=== PATIENT | female | born 1960 | race Caucasian/White ===

== ENCOUNTER → 2017-10-24 | Day surgery (SDC) | payer MEDICARE ==
--- NOTE | 2017-10-19 18:32 | Diagnostic Imaging Report ---
PROCEDURE:C-SPINE AP AND LAT WITH FLEX AND EXT COMPARISON:Patients [facility], DX, SPINE CERVICAL AP\T\LAT FLEX\T\EXT, 02/26/2017, 9:19. INDICATIONS:POST FUSION FINDINGS: The cervical spine is visualized in the lateral view from the skull base to superior endplate of T1. Status post anterior fixation of C4-C5 with intact hardware. Minimal grade 1 anterolisthesis of C5 on C4, which is predominantly seen in the flexion view. No lytic or blastic lesions. Degenerative disc changes with prominent osteophytosis at C3-C4-C5-C6 and C6-C7. Intervertebral disc space narrowing. C6-C7. Vertebral body heights are preserved. Prevertebral soft tissues are unremarkable. CONCLUSION: Status post anterior fusion C4-C5 with intact hardware. No significant interval bony fusion. Mk Sloan M.D. Dictated by: Mk Sloan M.D. on 10/19/2017 at 18:36 Electronically approved by: Mk Sloan M.D. on 10/19/2017 at 18:36
[~2017-10-24] MED LIST: ACETAMINOPHEN 1000 MG/100 ML IV ONE; ACETAMINOPHEN325 M1 PO; ALBUTEROL SULFATE HFA 8GM INHALATION AEROSOL INH ONE; ANASTROZOLE1 MG PO; BUPROPION XL150 MG PO; CALCIUM 600 +1 EAC4 PO; CENTRUM SILVER1 EAC3; CHANTIX1 MG PO; CLINDAMYCIN PHOS 900MG/ D5W 50 50 ML IV ONE; CLONAZEPAM; CLONAZEPAM1 M1 PO; CLONAZEPAM1 MG PO; CRESTOR10 MG PO; CRESTOR40 MG PO; CYMBALTA; CYMBALTA60 MG PO; DEXAMETHASONE SOD PHOS INJ 4 MG/ML VIAL ONE; DOLACET 5/5001 EACH; FENTANYL CITRATE/PF 100MCG/2 ML INJ ONE; GABAPENTIN; GABAPENTIN600 MG PO; GLYCOPYRROLATE INJ 1MG/ 5 ML SYR ONE; HYDROCHLOROTHIA25 MG PO; HYDROCHLOROTHIAZIDE; HYDROCODON-ACE1 EA11 PO; HYDROMORPHONE HC4 MG PO; HYDROXYCHLOROQ200 MG PO; HYDROXYZINE PAM50 MG PO; KETOROLAC TROMETHAMINE 30 MG/ML VIAL ONE; LIDOCAINE 2%/ EPINEPHRINE 20ML MDV ONE; LIDOCAINE HCL 2% LOCAL INJ 5 ML SDV VIAL INJ ONE; LORTAB 10-5001 EACH PO; MELOXICAM; MELOXICAM15 MG PO; MIDAZOLAM HCL 2 MG/2 ML VIAL ONE; MIRTAZAPINE; MIRTAZAPINE15 MG PO; NEOSTIGMINE 5 MG/5ML SYR ONE; NEURONTIN600 MG PO; NORCO 7.5-3251 EACH PO; OLANZAPINE5 MG PO; ONDANSETRON HCL INJ 2 MG/ML VIAL ONE; PHENYLEPHRINE HCL 1% 10 MG/ML VIAL ONE; PRAZOSIN HCL1 MG PO; PRAZOSIN HCL5 MG PO; PROPOFOL IV EMULSION 10 MG/ML 20 ML VIAL ONE; PROZAC PO; PROZAC40 MG PO; ROPIVACAINE 0.5% 5 MG/ML 30 ML SDV ONE; SEVOFLURANE INHAL SOLN 250 ML PEN BTL ONE; SOMA350 MG PO; TAMOXIFEN; TAMOXIFEN CITRA20 MG PO; TIZANIDINE; TIZANIDINE HCL4 M1 PO; TIZANIDINE HCL4 MG PO; TRAMADOL-ACETAMI1 EA PO; TRAZODONE; TRAZODONE HCL100 MG PO; TRAZODONE HCL150 MG PO; VITAMIN C500 MG PO; VITAMIN D 3 PO; VITAMIN E400 UNI2 PO; WELLBUTRIN XL300 MG PO; XYZAL5 MG PO; Z CHANTIX PO; Z DEPAKOTE; Z.0.CRESTOR5 MG PO; [UNRECOGNIZED DRUG - OTHER]
--- NOTE | 2017-10-26 15:36 | Operative Report ---
PREOPERATIVE DIAGNOSES 1. Right shoulder rotator cuff tear. 2. Right shoulder acromioclavicular joint arthrosis. POSTOPERATIVE DIAGNOSES 1. Right shoulder rotator cuff tear. 2. Right shoulder acromioclavicular joint arthrosis. 3. Right shoulder synovitis. OPERATIONS/PROCEDURES PERFORMED 1. The patient underwent a right shoulder examination under anesthesia. 2. Right shoulder arthroscopy. 3. Right shoulder arthroscopic debridement synovitis. 4. Right shoulder arthroscopic rotator cuff reconstruction. 5. Right shoulder arthroscopic subacromial decompression and acromioplasty. 6. Right shoulder arthroscopic distal clavicle resection. SURVEILLANCE OBSERVER: None. ANESTHESIA: General endotracheal intubation anesthesia. IV FLUIDS: As per the anesthesia record. BRIEF DESCRIPTION OF THE PATIENT'S OPERATIVE PROCEDURE: Ms. Rollins was taken to the operating room, placed in supine position on the operating table. Following induction of general anesthesia as well as endotracheal intubation, the patient's right upper extremity was examined under anesthesia. She was found to have full passive range motion of the shoulder joint. There was no evidence of instability. The patient's upper extremity was prepped and draped in standard surgical fashion. The case was begun by creating standard posterolateral anterior portals. These were created without difficulty. Scope was placed within the shoulder joint atraumatically. Examination of the glenohumeral articulation demonstrated no significant evidence of arthrosis. There were no loose bodies within the shoulder joint. The biceps tendon was found to be contained within the shoulder joint. The extraarticular portion of the biceps tendon also did not demonstrate tearing or injury. There was some mild fraying of the labrum. Examination of the rotator cuff tissue demonstrated a full-thickness tear of the anterior leading edge of the rotator cuff tendon. A shaver was placed in the shoulder joint and the patient had diffuse synovitis, tearing and injury. There was diffuse synovitis in the shoulder joint. Examination of the rotator cuff tissue demonstrated a full-thickness tear of the anterior leading edge of the rotator cuff tendon. A shaver was placed in the shoulder joint and the synovitis was debrided. The rotator cuff injury was also debrided at this time. The insertion site was debrided to a bleeding bony bed. An elevator was used to elevate the associated partially torn region of the rotator cuff tissue also and the shaver was used debride the insertion site further. Shoulder was then deflated of its sterile normal saline. Scope was placed in subacromial space and significant bursal inflammation was encountered. A lateral portal was created through an outside-in technique. A bursectomy was performed. The rotator cuff tear was easily identified. A shaver was used to further debride the insertion site. A single triple-loaded suture anchor was then inserted into the greater tuberosity and the suture arms from the anchor was then woven through the rotator cuff tissue. The rotator cuff tissue was then advanced into its normal insertion site and tied firmly. This resulted in complete reapproximation of the rotator cuff tissue of the greater tuberosity. The patient had a significantly downward sloping acromion. The coracoacromial ligament was resected and acromioplasty was performed at this time. The anterior portal was then transferred to the subacromial space at the level of the AC joint. The shaver was transferred to the anterior portal and a 1 cm section of the distal clavicle was resected at this time. The distal clavicle resection was confirmed by transferring the scope to the anterior portal and evaluating the AC joint interval under direct visualization. The shoulder was then deflated of its inflated with sterile normal saline. All the portal sites were closed in a single layer fashion. Sterile dressings were applied and the patient was provided a shoulder immobilizer, awakened and taken to post anesthesia care unit in stable condition. Job#: [id number] JANETT
== END | disposition home or self-care (01) ==
LOC: OR 05:57
PROVIDERS: ATTEND Specialist
DX: S46.091A Other injury of muscle(s) and tendon(s) of the rotator cuff of right shoulder, initial encounter (principal); M19.011 Primary osteoarthritis, right shoulder; M65.811 Other synovitis and tenosynovitis, right shoulder; K58.9 Irritable bowel syndrome, unspecified; K21.9 Gastro-esophageal reflux disease without esophagitis; K44.9 Diaphragmatic hernia without obstruction or gangrene; T78.40XA Allergy, unspecified, initial encounter; R05 Cough; E78.00 Pure hypercholesterolemia, unspecified; R53.1 Weakness; M54.9 Dorsalgia, unspecified; F41.9 Anxiety disorder, unspecified; F32.9 Major depressive disorder, single episode, unspecified; F17.210 Nicotine dependence, cigarettes, uncomplicated; X58.XXXA Exposure to other specified factors, initial encounter; Z88.6 Allergy status to analgesic agent; Z88.0 Allergy status to penicillin; Z88.8 Allergy status to other drugs, medicaments and biological substances; Z01.810 Encounter for preprocedural cardiovascular examination; Z85.3 Personal history of malignant neoplasm of breast
CPT/HCPCS: 29824; 29826; 29827; 72050; 93005; J1100; J1885; J2001 ×2; J2250; J2370; J2405; J2795; J3490

== ENCOUNTER 2019-02-18 13:46 | Emergency (ER) | payer MEDICARE ==
[~2019-02-18] VITALS: Ht 170.2 cm; Wt 85.3 kg
[~2019-02-18 13:46] MED LIST changes: -ACETAMINOPHEN 1000 MG/100 ML IV ONE; -ALBUTEROL SULFATE HFA 8GM INHALATION AEROSOL INH ONE; -CLINDAMYCIN PHOS 900MG/ D5W 50 50 ML IV ONE; -DEXAMETHASONE SOD PHOS INJ 4 MG/ML VIAL ONE; -FENTANYL CITRATE/PF 100MCG/2 ML INJ ONE; -GLYCOPYRROLATE INJ 1MG/ 5 ML SYR ONE; -KETOROLAC TROMETHAMINE 30 MG/ML VIAL ONE; -LIDOCAINE 2%/ EPINEPHRINE 20ML MDV ONE; -LIDOCAINE HCL 2% LOCAL INJ 5 ML SDV VIAL INJ ONE; -MIDAZOLAM HCL 2 MG/2 ML VIAL ONE; -NEOSTIGMINE 5 MG/5ML SYR ONE; -ONDANSETRON HCL INJ 2 MG/ML VIAL ONE; -PHENYLEPHRINE HCL 1% 10 MG/ML VIAL ONE; -PROPOFOL IV EMULSION 10 MG/ML 20 ML VIAL ONE; -ROPIVACAINE 0.5% 5 MG/ML 30 ML SDV ONE; -SEVOFLURANE INHAL SOLN 250 ML PEN BTL ONE
--- NOTE | 2019-02-18 14:20 | NUR ---
DRAMATIC IN TRIAGE.
[2019-02-18] MEDS ORDERED: ONDANSETRON HCL 4 MG ORAL DISINTEGRATING TAB PO ONE (14:30)
[2019-02-18] MEDS ORDERED: HYDROCODONE/APAP 10MG-325MG TAB PO ONE (14:30)
[2019-02-18] MEDS ORDERED: HYDROCODONE/APAP 10MG-325MG TAB PO NR (14:45)
[2019-02-18] MEDS ORDERED: ONDANSETRON HCL 4 MG ORAL DISINTEGRATING TAB PO NR (14:45)
--- NOTE | 2019-02-18 15:16 | Diagnostic Imaging Report ---
EXAMINATION: WRIST COMPLETE LEFT, FOREARM LEFT 2 VIEW INDICATION: Wrist pain, trauma COMPARISON: None FINDINGS: There is a mildly displaced acute fracture of the distal radius with dorsal angulation of the distal fracture fragment. No other acute fractures identified. Extensive overlying soft tissue swelling. IMPRESSION: Mildly displaced acute distal radius fracture with dorsal angulation of distal fracture fragment. Prominent associated soft tissue swelling. Signed by: Savnanah Haq MD on 02/18/2019 3:13 PM
== END 2019-02-18 16:42 | disposition home or self-care (01) ==
LOC: ER 13:46
DX: S52.322A Displaced transverse fracture of shaft of left radius, initial encounter for closed fracture (principal); W01.0XXA Fall on same level from slipping, tripping and stumbling without subsequent striking against object, initial encounter; Y93.01 Activity, walking, marching and hiking; Y92.008 Other place in unspecified non-institutional (private) residence as the place of occurrence of the external cause; I10 Essential (primary) hypertension; E11.9 Type 2 diabetes mellitus without complications; E03.9 Hypothyroidism, unspecified; F41.9 Anxiety disorder, unspecified; I25.2 Old myocardial infarction
CPT/HCPCS: 29125; 73090; 73110; 99284; Q0162

== ENCOUNTER → 2019-03-10 | Day surgery (SDC) | payer MEDICARE ==
[~2019-03-10] MED LIST changes: +ACETAMINOPHEN 1000 MG/100 ML 100 ML IV ONE; +BACITRACIN 50,000 UNIT VIAL ONE; +BUPIVACAINE HCL 0.5% INJ 30 ML VIAL INJ ONE; +CELEBREX100 MG PO; +CLINDAMYCIN PHOS 900MG/ 50ML 50 ML IV ONE; +DEXAMETHASONE SOD PHOS INJ 4 MG/ML VIAL ONE; +EPHEDRINE SULFATE INJ 50 MG/10 ML SYR ONE; +FENTANYL CITRATE/PF 100MCG/2 ML INJ ONE; +KETOROLAC TROMETHAMINE 30 MG/ML VIAL ONE; +LIDOCAINE HCL 2% LOCAL INJ 5 ML SDV VIAL INJ ONE; +MIDAZOLAM HCL 2 MG/2 ML VIAL ONE; +NEXIUM20 MG; +ONDANSETRON HCL INJ 2MG/ML 2ML 2 MG/ML VIAL ONE; +PRAZOSIN HCL1 GM; +PROPOFOL IV EMULSION 10 MG/ML 20 ML VIAL ONE; +SEVOFLURANE INHAL SOLN 250 ML PEN BTL ONE; +TIZANIDINE HCL4 M1
[2019-03-10] MEDS: MORPHINE SULFATE INJ 4 MG/ML INJ 1ML ONE (14:11)
[2019-03-10 14:50] VITALS: BP 144/74
--- NOTE | 2019-03-14 20:10 | Operative Report ---
DATE OF PROCEDURE: 03/10/2019 SURGEON: Kingston Bills MD PREOPERATIVE DIAGNOSIS: Displaced left distal radius fracture. POSTOPERATIVE DIAGNOSIS: Displaced left distal radius fracture. OPERATION/PROCEDURE PERFORMED: 1. The patient underwent an attempted closed reduction of the left wrist fracture followed by open reduction and percutaneous pinning of the left wrist fracture. 2. Allograft bone grafting of the left wrist fracture. COMMERCIAL ROOFER: There was no electrician assistant. ANESTHESIA: General endotracheal intubation anesthesia. IV FLUIDS: Per the anesthesia record. DESCRIPTION OF PROCEDURE: Ms. Rollins was taken to the operating room and placed in supine position on the operating table. Following induction of general anesthesia as well as the endotracheal intubation, the patient's left upper extremity was examined under anesthesia. She was found to have a swollen wrist with a deformity at the level of the wrist. Fluoroscopic evaluation of the wrist joint demonstrated a dorsally malaligned distal radius fracture. The patient's upper extremity was prepped and draped in standard surgical fashion. The case was begun by attempting to perform a closed reduction of the patient's wrist. This failed to provide acceptable realignment of the patient's wrist injury. An incision was then created in the dorsum of the wrist. This incision was carried through the skin only. Blunt dissection was used to deepen the incision and the 4th dorsal wrist compartment was identified and opened. The extensor tendons for dorsal wrist compartment were retracted and dissection was carried through the floor of the 4th dorsal wrist compartment to the dorsum of the wrist. The fracture site was easily identified. A [place] was placed in the fracture site and the fracture was then manipulated using the [place] providing length and restoring the alignment of the distal radius. Two pins were then inserted from distal to proximal transfixing the fracture in its reduced position. The position of those pins as well as reduction of fracture site was then assessed using fluoroscopy and found to be appropriate. The wound was then copiously irrigated. Allograft bone graft was then used to graft the patient's fracture site. The extensor compartment was then loosely closed. The wound was then closed in a multilayer fashion. Sterile dressings were applied as well as a well-padded sugar-tong splint. The patient was then awakened and taken to the postanesthesia care unit in stable condition. MD CHRIS Mccall/RAYSA /[id number]
== END | disposition home or self-care (01) ==
LOC: OR 10:31
PROVIDERS: ATTEND Specialist
DX: S52.532A Colles' fracture of left radius, initial encounter for closed fracture (principal); M54.9 Dorsalgia, unspecified; I45.10 Unspecified right bundle-branch block; R00.1 Bradycardia, unspecified; R53.1 Weakness; K21.9 Gastro-esophageal reflux disease without esophagitis; M46.89 Other specified inflammatory spondylopathies, multiple sites in spine; F32.9 Major depressive disorder, single episode, unspecified; F17.210 Nicotine dependence, cigarettes, uncomplicated; W18.39XA Other fall on same level, initial encounter; Y93.89 Activity, other specified; Y92.096 Garden or yard of other non-institutional residence as the place of occurrence of the external cause; Y99.8 Other external cause status; Z88.6 Allergy status to analgesic agent; Z88.0 Allergy status to penicillin; Z88.8 Allergy status to other drugs, medicaments and biological substances; Z01.810 Encounter for preprocedural cardiovascular examination
CPT/HCPCS: 25607; 25999; 93005; C1713 ×3; J0131; J1100; J1885; J2001; J2250; J2270; J2405; J2704; J3010; 76000

== ENCOUNTER 2020-05-25 09:07 | Inpatient (IN) | payer MEDICARE ==
[~2020-05-25] VITALS: Ht 172.7 cm; Wt 85.3 kg
[~2020-05-25 09:07] MED LIST changes: -ACETAMINOPHEN 1000 MG/100 ML 100 ML IV ONE; -BACITRACIN 50,000 UNIT VIAL ONE; -BUPIVACAINE HCL 0.5% INJ 30 ML VIAL INJ ONE; -CLINDAMYCIN PHOS 900MG/ 50ML 50 ML IV ONE; -DEXAMETHASONE SOD PHOS INJ 4 MG/ML VIAL ONE; -EPHEDRINE SULFATE INJ 50 MG/10 ML SYR ONE; -FENTANYL CITRATE/PF 100MCG/2 ML INJ ONE; -KETOROLAC TROMETHAMINE 30 MG/ML VIAL ONE; -LIDOCAINE HCL 2% LOCAL INJ 5 ML SDV VIAL INJ ONE; -MIDAZOLAM HCL 2 MG/2 ML VIAL ONE; -ONDANSETRON HCL INJ 2MG/ML 2ML 2 MG/ML VIAL ONE; -PROPOFOL IV EMULSION 10 MG/ML 20 ML VIAL ONE; -SEVOFLURANE INHAL SOLN 250 ML PEN BTL ONE
[2020-05-25] MEDS ORDERED: SODIUM CHLORIDE 0.9% 1000ML 1,000 ML IV STA (09:44)
[2020-05-25] MEDS ORDERED: MORPHINE SULFATE INJ 4 MG/ML INJ 1ML IV STA (10:36)
[2020-05-25 10:37] LABS: BASOPHILS # (AUTO) 0.1 (0.0-0.1); BASOPHILS % 0.4 % (0.0-1.0); EOSINOPHILS # (AUTO) 0.1 (0.0-0.4); EOSINOPHILS % 0.6 % (0.0-6.0); HEMATOCRIT 41.6 % (34.2-44.1); HEMOGLOBIN 13.8 g/dL (12.0-16.0); LYMPHOCYTES # (AUTO) 3.9 (1.0-3.2); LYMPHOCYTES % 30.7 % (18.0-39.1); MEAN CORPUSCULAR HEMOGLOBIN 28.6 pg (28-32); MEAN CORPUSCULAR HGB CONC 33.2 g/dL (31-35); MEAN CORPUSCULAR VOLUME 86.3 fL (81-99); MONOCYTES # (AUTO) 0.8 (0.2-0.8); MONOCYTES % 6.3 % (4.4-11.3); NEUTROPHILS # (AUTO) 7.8 (2.1-6.9); NEUTROPHILS % 61.7 % (38.7-80.0); PLATELET COUNT 319 x10e3/uL (140-360); RED BLOOD COUNT 4.82 x10e6/uL (3.6-5.1); RED CELL DISTRIBUTION WIDTH 14.6 % (11.7-14.4)
[2020-05-25] MEDS ORDERED: FAMOTIDINE 20 MG/2 ML VIAL IV STA (10:37)
[2020-05-25] MEDS ORDERED: ONDANSETRON HCL INJ 2MG/ML 2ML 2 MG/ML VIAL IV STA (10:37)
[2020-05-25 10:42] LABS: CLARITY,URINE CLOUDY (CLEAR); COLOR,URINE YELLOW (YELLOW)
[2020-05-25 10:43] LABS: KETONES,URINE NEGATIVE (NEGATIVE); LEUKOCYTE ESTERASE ,URINE NEGATIVE (NEGATIVE); NITRITE,URINE NEGATIVE (NEGATIVE); PROTEIN,URINE DIPSTICK NEGATIVE (NEGATIVE); URINE UROBILINOGEN 0.2 mg/dL (0.2 - 1)
[2020-05-25] MEDS ORDERED: MORPHINE SULFATE INJ 4 MG/ML INJ 1ML ONE (10:43)
[2020-05-25 10:52] LABS: ALANINE AMINOTRANSFERASE 25 IU/L (0-55); ALBUMIN 3.7 g/dL (3.5-5.0); ALKALINE PHOSPHATASE 92 IU/L (40-150); AMYLASE 55 U/L (25-125); ANION GAP 16.1 mmol/L (8-16); BLOOD UREA NITROGEN 14 mg/dL (7-26); BUN/CREATININE RATIO 18 (6-25); CALCIUM 10.7 mg/dL (8.4-10.2); CARBON DIOXIDE 26 mmol/L (22-29); CHLORIDE 99 mmol/L (98-107); CREATINE KINASE 36 IU/L (29-168); CREATININE, SERUM 0.76 mg/dL (0.57-1.11); EST GLOMERULAR FILTRATION RATE > 60 ML/MIN (60-); GLUCOSE 115 mg/dL (74-118); LIPASE 41 U/L (8-78); MAGNESIUM 1.7 MG/DL (1.3-2.1); POTASSIUM 4.1 mmol/L (3.5-5.1); SODIUM 137 mmol/L (136-145)
[2020-05-25 10:59] LABS: BACTERIA,URINE MODERATE /HPF; EPITHELIAL CELLS,URINE MODERATE /LPF; RBC,URINE 0-5 /HPF (0-5); WBC,URINE (MAN) 0-5 /HPF (0-5)
[2020-05-25 11:01] LABS: INR 0.89; PROTHROMBIN TIME 12.5 seconds (11.9-14.5)
[2020-05-25 11:02] LABS: PARTIAL THROMBOPLASTIN TIME 27.5 seconds (23.8-35.5)
[2020-05-25] MEDS ORDERED: IOPAMIDOL 370 MG/ML 200 ML INFUS..BTL INJ ONE (11:34)
[2020-05-25] MEDS ORDERED: SODIUM CHLORIDE 0.9% 50ML 50 ML ONE (11:34)
[2020-05-25] MEDS ORDERED: MORPHINE SULFATE INJ 2 MG/ML SYR IV STA (13:23)
[2020-05-25] MEDS: CEFTRIAXONE SOD 1 GM/NS 50 ML 50 ML IV SCH (13:52)
[2020-05-25] MEDS: METRONIDAZOLE 500MG/NS 100ML 100 ML IV SCH ×2 (14:52→20:34)
[2020-05-25] MEDS: SODIUM CHLORIDE 0.9% 1000ML 1,000 ML IV SCH ×2 (14:53→18:33)
[2020-05-25] MEDS: MORPHINE SULFATE INJ 4 MG/ML INJ 1ML IV PRN ×2 (17:29→20:34)
[2020-05-25 18:12] VITALS: BP 135/66
[2020-05-25 18:25] VITALS: BP 135/66
[2020-05-25] MEDS: ONDANSETRON HCL INJ 2MG/ML 2ML 2 MG/ML VIAL IV PRN (20:34)
[2020-05-25 21:12] VITALS: BP 115/60
[2020-05-25 21:28] VITALS: BP 115/60
[2020-05-26] VITALS (8 sets, daily range): BP systolic 125–172; BP diastolic 60–75
[2020-05-26] MEDS: CEFTRIAXONE SOD 1 GM/NS 50 ML 50 ML IV SCH ×2 (01:23→14:00)
[2020-05-26] MEDS: MORPHINE SULFATE INJ 4 MG/ML INJ 1ML IV PRN ×4 (01:24→23:37)
[2020-05-26] MEDS: METRONIDAZOLE 500MG/NS 100ML 100 ML IV SCH ×4 (02:47→20:12)
[2020-05-26] MEDS: SODIUM CHLORIDE 0.9% 1000ML 1,000 ML IV SCH ×3 (02:51→15:45)
[2020-05-26] MEDS: ONDANSETRON HCL INJ 2MG/ML 2ML 2 MG/ML VIAL IV PRN ×2 (04:30→08:35)
[2020-05-26 05:27] LABS: BASOPHILS % 0.7 % (0.0-1.0); EOSINOPHILS # (AUTO) 0.1 (0.0-0.4); EOSINOPHILS % 1.2 % (0.0-6.0); HEMATOCRIT 24.1 % (34.2-44.1); HEMOGLOBIN 7.6 g/dL (12.0-16.0); LYMPHOCYTES # (AUTO) 2.3 (1.0-3.2); LYMPHOCYTES % 40.1 % (18.0-39.1); MEAN CORPUSCULAR HEMOGLOBIN 28.9 pg (28-32); MEAN CORPUSCULAR HGB CONC 31.5 g/dL (31-35); MEAN CORPUSCULAR VOLUME 91.6 fL (81-99); MONOCYTES # (AUTO) 0.6 (0.2-0.8); MONOCYTES % 10.1 % (4.4-11.3); NEUTROPHILS # (AUTO) 2.8 (2.1-6.9); NEUTROPHILS % 47.7 % (38.7-80.0); PLATELET COUNT 142 x10e3/uL (140-360); RED BLOOD COUNT 2.63 x10e6/uL (3.6-5.1); RED CELL DISTRIBUTION WIDTH 14.7 % (11.7-14.4)
[2020-05-26 07:00] LABS: ALANINE AMINOTRANSFERASE 10 IU/L (0-55); ALBUMIN 1.7 g/dL (3.5-5.0); ALBUMIN/GLOBULIN RATIO 1.1 (0.8-2.0); ALKALINE PHOSPHATASE 42 IU/L (40-150); ANION GAP 8.4 mmol/L (8-16); BLOOD UREA NITROGEN < 5 mg/dL (7-26); CARBON DIOXIDE 15 mmol/L (22-29); CHLORIDE 121 mmol/L (98-107); CREATININE, SERUM 0.39 mg/dL (0.57-1.11); EST GLOMERULAR FILTRATION RATE > 60 ML/MIN (60-); GLUCOSE 60 mg/dL (74-118); SODIUM 142 mmol/L (136-145)
[2020-05-26 07:23] LABS: BUN/CREATININE RATIO 13 (6-25)
[2020-05-26 07:24] LABS: CALCIUM 4.8 mg/dL (8.4-10.2); POTASSIUM 2.4 mmol/L (3.5-5.1)
[2020-05-26] MEDS ORDERED: POTASSIUM CHLORIDE 20MEQ/100ML 200 ML IV ONE (08:30)
[2020-05-26] MEDS ORDERED: POTASSIUM CHLORIDE 10MEQ EA PO ONE (08:35)
[2020-05-26] MEDS ORDERED: CALCIUM GLUCONATE 10% INJ 4.65 MEQ in SODIUM CHLORIDE 0.9% 50ML 50 ML IV ONE (09:00)
[2020-05-26 11:44] LABS: BASOPHILS % 0.4 % (0.0-1.0); EOSINOPHILS # (AUTO) 0.1 (0.0-0.4); EOSINOPHILS % 0.8 % (0.0-6.0); HEMATOCRIT 35.3 % (34.2-44.1); LYMPHOCYTES % 28.1 % (18.0-39.1); MEAN CORPUSCULAR HEMOGLOBIN 28.2 pg (28-32); MEAN CORPUSCULAR HGB CONC 31.2 g/dL (31-35); MEAN CORPUSCULAR VOLUME 90.5 fL (81-99); MONOCYTES # (AUTO) 0.7 (0.2-0.8); MONOCYTES % 6.8 % (4.4-11.3); NEUTROPHILS # (AUTO) 6.8 (2.1-6.9); NEUTROPHILS % 63.6 % (38.7-80.0); RED CELL DISTRIBUTION WIDTH 14.8 % (11.7-14.4)
[2020-05-26 12:00] LABS: PLATELET COUNT 214 x10e3/uL (140-360)
[2020-05-26] MEDS ORDERED: GLYCOPYRROLATE INJ 0.2 MG/ML VIAL ONE (12:52)
[2020-05-26] MEDS ORDERED: PROPOFOL IV EMULSION 10 MG/ML 20 ML VIAL ONE (12:52)
[2020-05-26] MEDS ORDERED: ONDANSETRON HCL INJ 2MG/ML 2ML 2 MG/ML VIAL ONE ×2 (12:52→15:55)
[2020-05-26] MEDS ORDERED: LIDOCAINE HCL 2% LOCAL INJ 5 ML SDV VIAL INJ ONE (12:52)
[2020-05-26] MEDS ORDERED: SEVOFLURANE INHAL SOLN 250 ML PEN BTL ONE (12:52)
[2020-05-26] MEDS ORDERED: NEOSTIGMINE 1 MG/ML 10ML VIAL ONE (12:52)
[2020-05-26] MEDS ORDERED: BUPIVACAINE HCL 0.5% INJ 30 ML VIAL INJ ONE (13:12)
[2020-05-26 14:21] LABS: ALANINE AMINOTRANSFERASE 17 IU/L (0-55); ALBUMIN/GLOBULIN RATIO 1.1 (0.8-2.0); ALKALINE PHOSPHATASE 72 IU/L (40-150); ANION GAP 13.8 mmol/L (8-16); BLOOD UREA NITROGEN < 5 mg/dL (7-26); CALCIUM 8.2 mg/dL (8.4-10.2); CARBON DIOXIDE 21 mmol/L (22-29); CHLORIDE 106 mmol/L (98-107); CREATININE, SERUM 0.64 mg/dL (0.57-1.11); EST GLOMERULAR FILTRATION RATE > 60 ML/MIN (60-); GLUCOSE 99 mg/dL (74-118); POTASSIUM 4.8 mmol/L (3.5-5.1); SODIUM 136 mmol/L (136-145)
[2020-05-26 14:22] LABS: BUN/CREATININE RATIO 8 (6-25)
[2020-05-26] MEDS ORDERED: HYDROCODONE/APAP 5MG-325MG TAB PO PRN (15:45)
[2020-05-26] MEDS ORDERED: ONDANSETRON HCL INJ 2MG/ML 2ML 2 MG/ML VIAL IV PRN (15:45)
[2020-05-26] MEDS ORDERED: METOCLOPRAMIDE HCL 10 MG/2ML VIAL ONE (15:55)
[2020-05-26] MEDS ORDERED: FENTANYL CITRATE/PF 100MCG/2 ML INJ ONE (16:01)
[2020-05-26] MEDS ORDERED: MORPHINE SULFATE INJ 2 MG/ML SYR ONE (16:15)
[2020-05-27] VITALS: BP 166/67
[2020-05-27] MEDS: SODIUM CHLORIDE 0.9% 1000ML 1,000 ML IV SCH ×2 (01:51→11:45)
[2020-05-27] MEDS: CEFTRIAXONE SOD 1 GM/NS 50 ML 50 ML IV SCH (01:51)
[2020-05-27] MEDS: METRONIDAZOLE 500MG/NS 100ML 100 ML IV SCH ×2 (02:50→08:25)
[2020-05-27 04:00] VITALS: BP 135/78
[2020-05-27 07:28] VITALS: BP 153/59
[2020-05-27] MEDS: MORPHINE SULFATE INJ 4 MG/ML INJ 1ML IV PRN (08:21)
[2020-05-27 11:03] VITALS: BP 129/63
[2020-05-27] MEDS ORDERED: ULTRACET TABLE1 EACH PO (12:47)
== END 2020-05-27 13:45 | disposition home or self-care (01) | DRG 419 ==
LOC: ER 11:43 → ERHOLD 14:36 → MED/SURG2 18:04
PROVIDERS: ADMIT Internal Medicine; ATTEND Internal Medicine
PROC: 0FT44ZZ Resection of Gallbladder, Percutaneous Endoscopic Approach (ICD-10-PCS; principal; 2020-05-26 15:30)
DX: K81.0 Acute cholecystitis (principal); K82.8 Other specified diseases of gallbladder; E78.5 Hyperlipidemia, unspecified; F41.9 Anxiety disorder, unspecified; F17.210 Nicotine dependence, cigarettes, uncomplicated; Z88.5 Allergy status to narcotic agent; Z88.0 Allergy status to penicillin; Z88.8 Allergy status to other drugs, medicaments and biological substances; Z85.3 Personal history of malignant neoplasm of breast; Z82.49 Family history of ischemic heart disease and other diseases of the circulatory system; Z20.822 Contact with and (suspected) exposure to COVID-19
CPT/HCPCS: 36415; 74177; 76705; 80053; 81001; 82150; 82550; 82553; 83690; 83735; 84484; 85025; 85610; 85730; 87086; 88304; 93005; 99284; J0610; J0696; J2001; J2270; J2405; J2710; J2765; J3010; J3480; J7030; Q9967; U0002

== ENCOUNTER 2020-06-07 20:01 | Emergency (ER) | payer MEDICARE ==
[~2020-06-07] VITALS: Ht 172.7 cm; Wt 85.3 kg
[~2020-06-07 20:01] MED LIST changes: +ULTRACET TABLE1 EACH PO
[2020-06-07] MEDS ORDERED: HYDROCODONE/APAP 10MG-325MG TAB PO ONE (20:30)
[2020-06-07] MEDS ORDERED: HYDROCODON-ACE1 EAC9 PO (22:12)
== END 2020-06-07 23:05 | disposition home or self-care (01) ==
LOC: ER 20:16
DX: S52.502A Unspecified fracture of the lower end of left radius, initial encounter for closed fracture (principal); S52.612A Displaced fracture of left ulna styloid process, initial encounter for closed fracture; W01.0XXA Fall on same level from slipping, tripping and stumbling without subsequent striking against object, initial encounter; Y93.01 Activity, walking, marching and hiking; Y92.008 Other place in unspecified non-institutional (private) residence as the place of occurrence of the external cause
CPT/HCPCS: 99283

== ENCOUNTER → 2020-06-23 | Day surgery (SDC) | payer MEDICARE ==
[~2020-06-23] MED LIST changes: +ACETAMINOPHEN 1000 MG/100 ML 100 ML IV ONE; +BUPIVACAINE HCL 0.5% INJ 30 ML VIAL INJ ONE; +CLINDAMYCIN PHOS 900MG/ 50ML 50 ML IV ONE; +DEXAMETHASONE SOD PHOS INJ 4 MG/ML VIAL ONE; +FENTANYL CITRATE/PF 100MCG/2 ML INJ ONE; +HYDROCODON-ACE1 EAC9 PO; +KETOROLAC TROMETHAMINE 30 MG/ML VIAL ONE; +LIDOCAINE HCL 2% LOCAL INJ 5 ML SDV VIAL INJ ONE; +MIDAZOLAM HCL 2 MG/2 ML VIAL ONE; +ONDANSETRON HCL INJ 2MG/ML 2ML 2 MG/ML VIAL ONE; +PROPOFOL IV EMULSION 10 MG/ML 20 ML VIAL ONE; +SEVOFLURANE INHAL SOLN 250 ML PEN BTL ONE
[2020-06-23 11:00] VITALS: BP 120/83
== END | disposition home or self-care (01) ==
LOC: OR 05:25
PROVIDERS: ATTEND Specialist
DX: S52.502A Unspecified fracture of the lower end of left radius, initial encounter for closed fracture (principal); M19.90 Unspecified osteoarthritis, unspecified site; I10 Essential (primary) hypertension; F32.9 Major depressive disorder, single episode, unspecified; M54.9 Dorsalgia, unspecified; F17.210 Nicotine dependence, cigarettes, uncomplicated; W01.0XXA Fall on same level from slipping, tripping and stumbling without subsequent striking against object, initial encounter; Y92.009 Unspecified place in unspecified non-institutional (private) residence as the place of occurrence of the external cause; Z88.6 Allergy status to analgesic agent; Z88.0 Allergy status to penicillin; Z88.8 Allergy status to other drugs, medicaments and biological substances; Z01.812 Encounter for preprocedural laboratory examination; Z20.822 Contact with and (suspected) exposure to COVID-19; Z85.3 Personal history of malignant neoplasm of breast
CPT/HCPCS: 25607; 76000; C1713 ×7; J0131; J1100; J1885; J2001; J2250; J2405; J2704; J3010; U0002

== ENCOUNTER → 2021-02-14 | Day surgery (SDC) | payer MEDICARE ==
[2021-02-03 12:20] LABS: BASOPHILS # (AUTO) 0.1 (0.0-0.1); BASOPHILS % 0.7 % (0.0-1.0); EOSINOPHILS # (AUTO) 0.2 (0.0-0.4); EOSINOPHILS % 1.5 % (0.0-6.0); HEMATOCRIT 39.5 % (34.2-44.1); HEMOGLOBIN 12.9 g/dL (12.0-16.0); LYMPHOCYTES # (AUTO) 3.6 (1.0-3.2); LYMPHOCYTES % 35.2 % (18.0-39.1); MEAN CORPUSCULAR HEMOGLOBIN 28.8 pg (28-32); MEAN CORPUSCULAR HGB CONC 32.7 g/dL (31-35); MEAN CORPUSCULAR VOLUME 88.2 fL (81-99); MONOCYTES # (AUTO) 0.7 (0.2-0.8); NEUTROPHILS # (AUTO) 5.6 (2.1-6.9); NEUTROPHILS % 55.3 % (38.7-80.0); PLATELET COUNT 282 x10e3/uL (140-360); RED BLOOD COUNT 4.48 x10e6/uL (3.6-5.1); RED CELL DISTRIBUTION WIDTH 14.9 % (11.7-14.4)
[2021-02-03 12:57] LABS: ALBUMIN 3.7 g/dL (3.5-5.0); ANION GAP 13.4 mmol/L (8-16); CALCIUM 9.1 mg/dL (8.4-10.2); CREATININE, SERUM 0.7 mg/dL (0.57-1.11); POTASSIUM 4.4 mmol/L (3.5-5.1)
[~2021-02-14] VITALS: Ht 172.7 cm; Wt 75.7 kg
[2021-02-14] VITALS (10 sets, daily range): BP systolic 115–162; BP diastolic 48–69
[~2021-02-14] MED LIST changes: -ACETAMINOPHEN 1000 MG/100 ML 100 ML IV ONE; +ALPRAZOLAM 0.5 MG TAB ONE; +BIOTIN2500 MCG PO; -BUPIVACAINE HCL 0.5% INJ 30 ML VIAL INJ ONE; -CLINDAMYCIN PHOS 900MG/ 50ML 50 ML IV ONE; -DEXAMETHASONE SOD PHOS INJ 4 MG/ML VIAL ONE; +DHEA50 MG PO; +DIPHENHYDRAMINE HCL 25 MG CAP ONE; +DOXEPIN HCL25 MG PO; +HEPARIN SOD (PORCINE) 1000 UNIT/ML 30ML ONE; +HEPARIN SOD/SOD CHLORIDE 2,000 ML ONE; +IOPAMIDOL 300MG/ML 100 ML INFUS..BTL IV ONE; -KETOROLAC TROMETHAMINE 30 MG/ML VIAL ONE; +LIDOCAINE HCL 2% LOCAL 20 ML VIAL ONE; -LIDOCAINE HCL 2% LOCAL INJ 5 ML SDV VIAL INJ ONE; +NITROGLYCERIN/D5W 200 MCG/ML 250 ML ONE; +OMEGA-31000 MG PO; -ONDANSETRON HCL INJ 2MG/ML 2ML 2 MG/ML VIAL ONE; +OXCARBAZEPINE600 MG PO; -PROPOFOL IV EMULSION 10 MG/ML 20 ML VIAL ONE; -SEVOFLURANE INHAL SOLN 250 ML PEN BTL ONE; +SODIUM CHLORIDE 0.9% 1000ML 1,000 ML ONE; +VITAMIN B COMP1 EAC1 PO; +VITAMIN D3250 MCG PO; +VITAMIN E400 UNI1 PO; +zinc PO
== END | disposition home or self-care (01) ==
LOC: CATH LAB 02-08 14:09
PROVIDERS: ATTEND Internal Medicine Interventional Cardiology
DX: I70.213 Atherosclerosis of native arteries of extremities with intermittent claudication, bilateral legs (principal); I10 Essential (primary) hypertension; F17.200 Nicotine dependence, unspecified, uncomplicated; Z88.6 Allergy status to analgesic agent; Z88.0 Allergy status to penicillin; Z88.8 Allergy status to other drugs, medicaments and biological substances; Z01.812 Encounter for preprocedural laboratory examination; Z20.822 Contact with and (suspected) exposure to COVID-19; Z82.49 Family history of ischemic heart disease and other diseases of the circulatory system; Z82.3 Family history of stroke
CPT/HCPCS: 36200; 36415; 75625; 75716; 76937; 80053; 85025; C1769 ×2; C1894; J2001; J2250; J3010; J7030; Q9967; U0002; 36247; 75710; 99152; 99153; J1644

== ENCOUNTER 2022-07-27 10:00 | Inpatient (IN) | payer MEDICARE ==
[2022-07-25 10:35] LABS: BASOPHILS # (AUTO) 0.1 (0.0-0.1); BASOPHILS % 0.8 % (0.0-1.0); EOSINOPHILS # (AUTO) 0.2 (0.0-0.4); EOSINOPHILS % 2.1 % (0.0-6.0); HEMATOCRIT 41.1 % (34.2-44.1); HEMOGLOBIN 13.3 g/dL (12.0-16.0); LYMPHOCYTES # (AUTO) 2.6 (1.0-3.2); LYMPHOCYTES % 36.3 % (18.0-39.1); MEAN CORPUSCULAR HEMOGLOBIN 28.9 pg (28-32); MEAN CORPUSCULAR HGB CONC 32.4 g/dL (31-35); MEAN CORPUSCULAR VOLUME 89.3 fL (81-99); MONOCYTES # (AUTO) 0.5 (0.2-0.8); MONOCYTES % 7.3 % (4.4-11.3); NEUTROPHILS # (AUTO) 3.8 (2.1-6.9); NEUTROPHILS % 53.2 % (38.7-80.0); PLATELET COUNT 230 x10e3/uL (140-360); RED CELL DISTRIBUTION WIDTH 15.3 % (11.7-14.4)
[2022-07-25 10:56] LABS: ANION GAP 13.3 mmol/L (8-16); CALCIUM 8.7 mg/dL (8.4-10.2); CREATININE, SERUM 0.78 mg/dL (0.57-1.11); POTASSIUM 4.3 mmol/L (3.5-5.1)
[~2022-07-27] VITALS: Ht 172.7 cm; Wt 74.4 kg
[~2022-07-27 10:00] MED LIST changes: -ALPRAZOLAM 0.5 MG TAB ONE; +AMLODIPINE BESYL5 MG PO; +ASPIRIN EC81 MG PO; +CLOPIDOGREL75 MG PO; -DIPHENHYDRAMINE HCL 25 MG CAP ONE; -FENTANYL CITRATE/PF 100MCG/2 ML INJ ONE; +HEALTHY EYES T1 EACH PO; -HEPARIN SOD (PORCINE) 1000 UNIT/ML 30ML ONE; -HEPARIN SOD/SOD CHLORIDE 2,000 ML ONE; +IBUPROFEN200 MG PO; -IOPAMIDOL 300MG/ML 100 ML INFUS..BTL IV ONE; +LEVOTHYROXINE50 MCG PO; -LIDOCAINE HCL 2% LOCAL 20 ML VIAL ONE; +LOSARTAN POTASS25 MG PO; -MIDAZOLAM HCL 2 MG/2 ML VIAL ONE; -NITROGLYCERIN/D5W 200 MCG/ML 250 ML ONE; +OYSTER SHELL 51 EACH PO; -SODIUM CHLORIDE 0.9% 1000ML 1,000 ML ONE
[2022-07-27] MEDS ORDERED: LACTATED RINGER'S 1,000 ML ONE (10:04)
[2022-07-27] MEDS ORDERED: BUPIVACAINE HCL 0.5% 10ML MPF VIAL INJ ONE (10:25)
[2022-07-27] MEDS ORDERED: LEVOFLOXACIN 500MG/D5W 100ML 100 ML IV ONE (10:57)
[2022-07-27] MEDS ORDERED: MIDAZOLAM HCL 2 MG/2 ML VIAL ONE (11:55)
[2022-07-27] MEDS ORDERED: FENTANYL CITRATE/PF 100MCG/2 ML INJ ONE (11:55)
[2022-07-27] MEDS ORDERED: BUPIVACAINE 0.5%/EPI 30 ML SDV INJ ONE (13:19)
[2022-07-27] MEDS ORDERED: BUPIVACAINE 0.25% 30ML SDV ONE (13:20)
[2022-07-27] MEDS ORDERED: ONDANSETRON HCL INJ 2MG/ML 2ML 2 MG/ML VIAL ONE (13:26)
[2022-07-27] MEDS ORDERED: GLYCOPYRROLATE INJ 0.2 MG/ML VIAL ONE (13:26)
[2022-07-27] MEDS ORDERED: DEXAMETHASONE SOD PHOS INJ 4 MG/ML SDV ONE (13:26)
[2022-07-27] MEDS ORDERED: SUCCINYLCHOLINE CHLORIDE 20 MG/ML 10ML VIAL ONE (13:26)
[2022-07-27] MEDS ORDERED: NEOSTIGMINE 1 MG/ML 10ML VIAL ONE (13:26)
[2022-07-27] MEDS ORDERED: PROPOFOL IV EMULSION 10 MG/ML 20 ML VIAL ONE (13:26)
[2022-07-27] MEDS ORDERED: ROCURONIUM BROMIDE 10 MG/ML 5ML VIAL IV ONE (13:26)
[2022-07-27] MEDS ORDERED: POVIDONE IODINE 0.05% 0.05 % ML PO ONE (13:26)
[2022-07-27] MEDS ORDERED: SEVOFLURANE INHAL SOLN 250 ML PEN BTL ONE (13:26)
[2022-07-27] MEDS ORDERED: LIDOCAINE HCL 2% LOCAL INJ 5 ML SDV VIAL INJ ONE (13:26)
[2022-07-27] MEDS ORDERED: DIPHENHYDRAMINE HCL 25 MG CAP PO PRN (14:15)
[2022-07-27] MEDS ORDERED: ONDANSETRON HCL INJ 2MG/ML 2ML 2 MG/ML VIAL IV PRN (14:15)
[2022-07-27] MEDS ORDERED: ACETAMINOPHEN 1000 MG/100 ML IV PRN (14:15)
[2022-07-27] MEDS ORDERED: NALOXONE HCL INJ 0.4 MG/ML AMP IV PRN (14:15)
[2022-07-27] MEDS ORDERED: KETOROLAC TROMETHAMINE 30 MG/ML VIAL IV PRN (14:15)
[2022-07-27] MEDS: MORPHINE SULFATE 1 MG/ML 30ML PCA IV PRN (14:25)
[2022-07-27] MEDS ORDERED: SODIUM CHLORIDE 0.9% 100 ML ONE (14:55)
[2022-07-27 15:35] VITALS: BP 128/56
[2022-07-27 16:14] VITALS: BP 114/53
[2022-07-27] MEDS: SOD CHL 0.45%/POT CHL 20MEQ 1,000 ML IV SCH (16:28)
[2022-07-27 20:00] VITALS: BP 102/56
[2022-07-27] MEDS: OXCARBAZEPINE 300 MG TAB PO SCH (22:54)
[2022-07-27] MEDS: TIZANIDINE HCL 4 MG TAB PO SCH (22:54)
[2022-07-27] MEDS: SIMVASTATIN 40 MG TAB PO SCH (22:54)
[2022-07-27] MEDS: DOXEPIN HCL 25 MG CAP PO SCH (22:54)
[2022-07-28] VITALS (8 sets, daily range): BP systolic 104–138; BP diastolic 51–61
[2022-07-28] MEDS: SOD CHL 0.45%/POT CHL 20MEQ 1,000 ML IV SCH ×2 (00:15→11:37)
[2022-07-28] MEDS: MORPHINE SULFATE 1 MG/ML 30ML PCA IV PRN ×2 (01:04→14:04)
[2022-07-28] MEDS: LEVOTHYROXINE SODIUM 50 MCG TAB PO SCH (05:00)
[2022-07-28 05:03] LABS: BASOPHILS % 0.1 % (0.0-1.0); EOSINOPHILS % 0.1 % (0.0-6.0); HEMOGLOBIN 10.3 g/dL (12.0-16.0); LYMPHOCYTES # (AUTO) 1.6 (1.0-3.2); MEAN CORPUSCULAR HGB CONC 31.2 g/dL (31-35); MONOCYTES # (AUTO) 0.8 (0.2-0.8); MONOCYTES % 7.8 % (4.4-11.3); NEUTROPHILS # (AUTO) 7.5 (2.1-6.9); NEUTROPHILS % 75.7 % (38.7-80.0); PLATELET COUNT 165 x10e3/uL (140-360); RED BLOOD COUNT 3.55 x10e6/uL (3.6-5.1); RED CELL DISTRIBUTION WIDTH 15.2 % (11.7-14.4)
[2022-07-28 05:22] LABS: CALCIUM 8.4 mg/dL (8.4-10.2); CREATININE, SERUM 0.74 mg/dL (0.57-1.11)
[2022-07-28] MEDS ORDERED: ONDANSETRON HCL 4 MG ORAL DISINTEGRATING TAB PO PRN (07:30)
[2022-07-28] MEDS: AMLODIPINE BESYLATE 5 MG TAB PO SCH (08:38)
[2022-07-28] MEDS: CLOPIDOGREL BISULFATE 75 MG TAB PO SCH (08:38)
[2022-07-28] MEDS: LOSARTAN POTASSIUM 25 MG TAB PO SCH (08:38)
[2022-07-28] MEDS: BUPROPION HCL 100 MG TAB PO SCH (08:38)
[2022-07-28] MEDS ORDERED: BUPROPION HCL 150 MG TABCR PO SCH (09:00)
[2022-07-28] MEDS ORDERED: SODIUM CHLORIDE 0.9% 1000ML 1,000 ML IV SCH (11:45)
[2022-07-28] MEDS: ALBUTEROL SULF 0.083% NEB SOLN 3 ML NEB NEB PRN (19:00)
[2022-07-28] MEDS: IPRATROPIUM BROMIDE 0.02% 2.5 ML NEB NEB PRN (19:00)
[2022-07-28] MEDS: TIZANIDINE HCL 4 MG TAB PO SCH (20:55)
[2022-07-28] MEDS: DOXEPIN HCL 25 MG CAP PO SCH (20:55)
[2022-07-28] MEDS: SIMVASTATIN 40 MG TAB PO SCH (20:56)
[2022-07-28] MEDS: OXCARBAZEPINE 300 MG TAB PO SCH (20:59)
[2022-07-29] MEDS: ALBUTEROL SULF 0.083% NEB SOLN 3 ML NEB NEB PRN ×3 (00:10→19:20)
[2022-07-29] MEDS: IPRATROPIUM BROMIDE 0.02% 2.5 ML NEB NEB PRN ×3 (00:10→19:20)
[2022-07-29 00:30] VITALS: BP 113/47
[2022-07-29 04:00] VITALS: BP 101/47
[2022-07-29] MEDS: LEVOTHYROXINE SODIUM 50 MCG TAB PO SCH (06:12)
[2022-07-29] MEDS ORDERED: MORPHINE SULFATE 1 MG/ML 30ML PCA IV PRN (06:30)
[2022-07-29 06:52] LABS: ANION GAP 13.9 mmol/L (8-16); CALCIUM 8.6 mg/dL (8.4-10.2); CREATININE, SERUM 0.75 mg/dL (0.57-1.11); POTASSIUM 3.9 mmol/L (3.5-5.1)
[2022-07-29 08:00] VITALS: BP 126/63
[2022-07-29] MEDS: CLOPIDOGREL BISULFATE 75 MG TAB PO SCH (09:27)
[2022-07-29] MEDS: LOSARTAN POTASSIUM 25 MG TAB PO SCH (09:27)
[2022-07-29] MEDS: BUPROPION HCL 100 MG TAB PO SCH (09:28)
[2022-07-29] MEDS: AMLODIPINE BESYLATE 5 MG TAB PO SCH (09:28)
[2022-07-29 11:43] VITALS: BP 114/51
[2022-07-29 16:03] VITALS: BP 144/55
[2022-07-29 20:00] VITALS: BP 125/54
[2022-07-29] MEDS: SIMVASTATIN 40 MG TAB PO SCH (20:26)
[2022-07-29] MEDS: OXCARBAZEPINE 300 MG TAB PO SCH (20:26)
[2022-07-29] MEDS: DOXEPIN HCL 25 MG CAP PO SCH (20:27)
[2022-07-29] MEDS: TIZANIDINE HCL 4 MG TAB PO SCH (20:27)
[2022-07-30] VITALS (7 sets, daily range): BP systolic 121–162; BP diastolic 51–62
[2022-07-30] MEDS: ALBUTEROL SULF 0.083% NEB SOLN 3 ML NEB NEB PRN ×4 (00:55→19:25)
[2022-07-30] MEDS: IPRATROPIUM BROMIDE 0.02% 2.5 ML NEB NEB PRN ×4 (00:55→19:25)
[2022-07-30] MEDS: LEVOTHYROXINE SODIUM 50 MCG TAB PO SCH (05:44)
[2022-07-30] MEDS: BUPROPION HCL 100 MG TAB PO SCH (08:10)
[2022-07-30] MEDS: LOSARTAN POTASSIUM 25 MG TAB PO SCH (08:10)
[2022-07-30] MEDS: CLOPIDOGREL BISULFATE 75 MG TAB PO SCH (08:11)
[2022-07-30] MEDS: HYDROCODONE/APAP 7.5MG-325MG 1 EA TAB PO PRN ×3 (08:11→21:10)
[2022-07-30] MEDS: AMLODIPINE BESYLATE 5 MG TAB PO SCH (08:11)
[2022-07-30] MEDS: OXCARBAZEPINE 300 MG TAB PO SCH (21:08)
[2022-07-30] MEDS: TIZANIDINE HCL 4 MG TAB PO SCH (21:09)
[2022-07-30] MEDS: DOXEPIN HCL 25 MG CAP PO SCH (21:09)
[2022-07-30] MEDS: SIMVASTATIN 40 MG TAB PO SCH (21:09)
[2022-07-31] VITALS (7 sets, daily range): BP systolic 109–158; BP diastolic 48–75
[2022-07-31 05:20] LABS: BASOPHILS % 0.5 % (0.0-1.0); EOSINOPHILS # (AUTO) 0.2 (0.0-0.4); EOSINOPHILS % 2.6 % (0.0-6.0); HEMATOCRIT 34.8 % (34.2-44.1); HEMOGLOBIN 11.4 g/dL (12.0-16.0); LYMPHOCYTES # (AUTO) 2.5 (1.0-3.2); LYMPHOCYTES % 33.2 % (18.0-39.1); MEAN CORPUSCULAR HEMOGLOBIN 28.4 pg (28-32); MEAN CORPUSCULAR HGB CONC 32.8 g/dL (31-35); MEAN CORPUSCULAR VOLUME 86.6 fL (81-99); MONOCYTES # (AUTO) 0.6 (0.2-0.8); MONOCYTES % 7.3 % (4.4-11.3); NEUTROPHILS # (AUTO) 4.3 (2.1-6.9); NEUTROPHILS % 55.9 % (38.7-80.0); PLATELET COUNT 211 x10e3/uL (140-360); RED BLOOD COUNT 4.02 x10e6/uL (3.6-5.1); RED CELL DISTRIBUTION WIDTH 14.4 % (11.7-14.4)
[2022-07-31] MEDS: LEVOTHYROXINE SODIUM 50 MCG TAB PO SCH (05:28)
[2022-07-31] MEDS: HYDROCODONE/APAP 7.5MG-325MG 1 EA TAB PO PRN ×4 (05:29→20:55)
[2022-07-31 05:43] LABS: ALANINE AMINOTRANSFERASE 22 IU/L (0-55); ALBUMIN/GLOBULIN RATIO 0.9 (0.8-2.0); ALKALINE PHOSPHATASE 79 IU/L (40-150); ANION GAP 13.6 mmol/L (8-16); BLOOD UREA NITROGEN 11 mg/dL (7-26); BUN/CREATININE RATIO 15 (6-25); CALCIUM 8.6 mg/dL (8.4-10.2); CARBON DIOXIDE 25 mmol/L (22-29); CHLORIDE 93 mmol/L (98-107); CREATININE, SERUM 0.72 mg/dL (0.57-1.11); GLUCOSE 92 mg/dL (74-118); MAGNESIUM 1.9 MG/DL (1.3-2.1); POTASSIUM 3.6 mmol/L (3.5-5.1); SODIUM 128 mmol/L (136-145)
[2022-07-31] MEDS ORDERED: MAGNESIUM HYDROXIDE 30 ML UDC PO ONE (07:00)
[2022-07-31] MEDS: IPRATROPIUM BROMIDE 0.02% 2.5 ML NEB NEB PRN ×3 (07:10→19:10)
[2022-07-31] MEDS: ALBUTEROL SULF 0.083% NEB SOLN 3 ML NEB NEB PRN ×3 (07:10→19:10)
[2022-07-31] MEDS: AMLODIPINE BESYLATE 5 MG TAB PO SCH (10:08)
[2022-07-31] MEDS: LOSARTAN POTASSIUM 25 MG TAB PO SCH (10:08)
[2022-07-31] MEDS: BUPROPION HCL 100 MG TAB PO SCH (10:09)
[2022-07-31] MEDS ORDERED: CLONAZEPAM1 MG PO (11:17)
[2022-07-31] MEDS ORDERED: CLONAZEPAM 1 MG TAB PO PRN (11:45)
[2022-07-31] MEDS: DOXEPIN HCL 25 MG CAP PO SCH (20:51)
[2022-07-31] MEDS: TIZANIDINE HCL 4 MG TAB PO SCH (20:51)
[2022-07-31] MEDS: SIMVASTATIN 40 MG TAB PO SCH (20:52)
[2022-07-31] MEDS: OXCARBAZEPINE 300 MG TAB PO SCH (20:52)
[2022-08-01 05:18] LABS: ANION GAP 13.7 mmol/L (8-16); CALCIUM 8.6 mg/dL (8.4-10.2); CREATININE, SERUM 0.67 mg/dL (0.57-1.11); POTASSIUM 3.7 mmol/L (3.5-5.1)
[2022-08-01] MEDS: LEVOTHYROXINE SODIUM 50 MCG TAB PO SCH (06:06)
[2022-08-01] MEDS ORDERED: HYDROCODON-ACE1 EA12 PO (06:22)
[2022-08-01] MEDS: ALBUTEROL SULF 0.083% NEB SOLN 3 ML NEB NEB PRN (07:18)
[2022-08-01] MEDS: IPRATROPIUM BROMIDE 0.02% 2.5 ML NEB NEB PRN (07:18)
[2022-08-01 07:57] VITALS: BP 137/63
[2022-08-01] MEDS: LOSARTAN POTASSIUM 25 MG TAB PO SCH (09:06)
[2022-08-01] MEDS: HYDROCODONE/APAP 7.5MG-325MG 1 EA TAB PO PRN (09:08)
[2022-08-01] MEDS: BUPROPION HCL 100 MG TAB PO SCH (09:08)
[2022-08-01] MEDS: AMLODIPINE BESYLATE 5 MG TAB PO SCH (09:08)
[2022-08-01 09:13] VITALS: BP 137/63
[2022-08-01 11:52] VITALS: BP 152/60
== END 2022-08-01 12:58 | disposition home or self-care (01) | DRG 355 ==
LOC: OR 10:00 → PACU V 14:47 → MED/SURG 15:50
PROVIDERS: ADMIT Surgery; ATTEND Surgery
PROC: 0WUF0JZ Supplement Abdominal Wall with Synthetic Substitute, Open Approach (ICD-10-PCS; 2022-07-27)
PROC: 3E0T3BZ Introduction of Anesthetic Agent into Peripheral Nerves and Plexi, Percutaneous Approach (ICD-10-PCS; principal; 2022-07-27 13:10)
DX: K43.2 Incisional hernia without obstruction or gangrene (principal); E78.00 Pure hypercholesterolemia, unspecified; F17.210 Nicotine dependence, cigarettes, uncomplicated; I25.10 Atherosclerotic heart disease of native coronary artery without angina pectoris; E03.9 Hypothyroidism, unspecified; Z88.0 Allergy status to penicillin; Z85.3 Personal history of malignant neoplasm of breast; Z86.73 Personal history of transient ischemic attack (TIA), and cerebral infarction without residual deficits
CPT/HCPCS: 0223U; 36415; 80048; 80053; 83735; 85025; 94799; J0330; J1100; J1885; J1956; J2001; J2250; J2270; J2405; J2710; J7030; J7050

== ENCOUNTER 2024-02-21 15:15 | Inpatient (IN) | payer MEDICARE ==
[~2024-02-21] VITALS: Ht 170.2 cm; Wt 71.3 kg
[~2024-02-21 15:15] MED LIST changes: +HYDROCODON-ACE1 EA12 PO; +KETOROLAC TROME10 MG PO; +LEVSIN-SL0.125 MG SL; +ONDANSETRON ODT4 MG PO
[2024-02-21 17:06] VITALS: TEMP 98.1
[2024-02-21 17:36] LABS: BASOPHILS # (AUTO) 0.1 (0.0-0.1); BASOPHILS % 0.5 % (0.0-1.0); EOSINOPHILS # (AUTO) 0.1 (0.0-0.4); EOSINOPHILS % 0.5 % (0.0-6.0); HEMATOCRIT 47.4 % (34.2-44.1); HEMOGLOBIN 16.7 g/dL (12.0-16.0); LYMPHOCYTES # (AUTO) 3.3 (1.0-3.2); LYMPHOCYTES % 32.3 % (18.0-39.1); MEAN CORPUSCULAR HEMOGLOBIN 28.9 pg (28-32); MEAN CORPUSCULAR HGB CONC 35.2 g/dL (31-35); MEAN CORPUSCULAR VOLUME 82.1 fL (81-99); MONOCYTES # (AUTO) 1.1 (0.2-0.8); MONOCYTES % 10.4 % (4.4-11.3); NEUTROPHILS # (AUTO) 5.8 (2.1-6.9); NEUTROPHILS % 55.8 % (38.7-80.0); PLATELET COUNT 394 x10e3/uL (140-360); RED BLOOD COUNT 5.77 x10e6/uL (3.6-5.1); WHITE BLOOD COUNT 10.33 x10e3/uL (4.8-10.8)
[2024-02-21 17:49] LABS: ALANINE AMINOTRANSFERASE 28 IU/L (0-55); ALBUMIN 4.7 g/dL (3.5-5.0); ALBUMIN/GLOBULIN RATIO 1.2 (0.8-2.0); ALKALINE PHOSPHATASE 125 IU/L (40-150); ANION GAP 22.9 mmol/L (8-16); BILIRUBIN,TOTAL 1.1 mg/dL (0.2-1.2); BLOOD UREA NITROGEN 13 mg/dL (7-26); BUN/CREATININE RATIO 11 (6-25); CALCIUM 10.5 mg/dL (8.4-10.2); CARBON DIOXIDE 22 mmol/L (22-29); CHLORIDE 81 mmol/L (98-107); CREATINE KINASE 78 IU/L (29-168); CREATININE, SERUM 1.17 mg/dL (0.57-1.11); EST GLOMERULAR FILTRATION RATE 52 ML/MIN (>=60); GLUCOSE 106 mg/dL (74-118); POTASSIUM 4.9 mmol/L (3.5-5.1); SODIUM 121 mmol/L (136-145); TOTAL PROTEIN 8.5 g/dL (6.5-8.1)
[2024-02-21 18:04] LABS: RESPIRATORY SYNC. VIRUS NEGATIVE (NEGATIVE)
[2024-02-21 18:05] LABS: TROPONIN I < 0.05 ng/mL (0.0-0.40)
[2024-02-21] MEDS ORDERED: IOPAMIDOL 370 MG/ML 100 ML INFUS..BTL INJ ONE (18:11)
[2024-02-21] MEDS: MUPIROCIN 2% OINT 22 GM TUBE TOP SCH (18:45)
[2024-02-21] MEDS: SODIUM CHLORIDE 0.9% 1000ML 1,000 ML IV ONE ×2 (18:58)
[2024-02-21 19:03] LABS: INFLUENZAE A&B ANTIGEN (RAPID) NEGATIVE (NEGATIVE)
[2024-02-21 19:49] LABS: CLARITY,URINE SL CLOUDY (CLEAR); COLOR,URINE YELLOW (YELLOW); GLUCOSE, URINE NEGATIVE (NEGATIVE); LEUKOCYTE ESTERASE ,URINE NEGATIVE (NEGATIVE); NITRITE,URINE NEGATIVE (NEGATIVE); PH,URINE 7 (5 - 7); PROTEIN,URINE DIPSTICK NEGATIVE (NEGATIVE)
[2024-02-21 19:50] LABS: AMPHETAMINES SCREEN,URINE NEGATIVE (NEGATIVE); BENZODIAZEPINES SCREEN,URINE NEGATIVE (NEGATIVE); BILIRUBIN,URINE NEGATIVE (NEGATIVE); CANNABINOIDS SCREEN,URINE NEGATIVE (NEGATIVE); KETONES,URINE NEGATIVE (NEGATIVE); METHADONE SCREEN, URINE NEGATIVE (NEGATIVE); OPIATES SCREEN,URINE NEGATIVE (NEGATIVE); PHENCYCLIDINE SCREEN,URINE NEGATIVE (NEGATIVE); URINE UROBILINOGEN 0.2 mg/dL (0.2 - 1)
[2024-02-21 20:01] LABS: BACTERIA,URINE MODERATE /HPF; EPITHELIAL CELLS,URINE MANY /LPF; RBC,URINE 0-5 /HPF (0-5); TRANSITIONAL EPI CELLS,URINE MODERATE; WBC,URINE (MAN) 0-5 /HPF (0-5)
[2024-02-21 20:15] VITALS: PULSE 77; RESP 13
[2024-02-21] MEDS: SODIUM CHLORIDE 0.9% 1000ML 1,000 ML IV SCH (20:26)
[2024-02-21 22:10] VITALS: BP 135/72; PULSE 94; RESP 22; TEMP 98.2; O2SAT 98
[2024-02-22] VITALS (8 sets, daily range): BP systolic 106–145; BP diastolic 53–70; PULSE 58–81; RESP 17–20; TEMP 97.8–99.1; O2SAT 96–100
[2024-02-22] MEDS ORDERED: BUPROPION HCL150 M2 PO (05:14)
[2024-02-22] MEDS ORDERED: LINZESS290 MCG PO (05:21)
[2024-02-22 05:25] LABS: BASOPHILS % 0.5 % (0.0-1.0); EOSINOPHILS % 0.4 % (0.0-6.0); HEMOGLOBIN 13.1 g/dL (12.0-16.0); LYMPHOCYTES # (AUTO) 2.8 (1.0-3.2); MEAN CORPUSCULAR HEMOGLOBIN 28.8 pg (28-32); MEAN CORPUSCULAR HGB CONC 34.5 g/dL (31-35); MEAN CORPUSCULAR VOLUME 83.5 fL (81-99); MONOCYTES % 12.8 % (4.4-11.3); NEUTROPHILS # (AUTO) 3.6 (2.1-6.9); NEUTROPHILS % 48.9 % (38.7-80.0); PLATELET COUNT 289 x10e3/uL (140-360); RED BLOOD COUNT 4.55 x10e6/uL (3.6-5.1); RED CELL DISTRIBUTION WIDTH 14.1 % (11.7-14.4); WHITE BLOOD COUNT 7.43 x10e3/uL (4.8-10.8)
[2024-02-22] MEDS ORDERED: BUPROPION HCL 100 MG TAB PO SCH (05:45)
[2024-02-22 06:02] LABS: ALBUMIN 3.3 g/dL (3.5-5.0); ALBUMIN/GLOBULIN RATIO 1.3 (0.8-2.0); ANION GAP 14.7 mmol/L (8-16); BILIRUBIN,TOTAL 0.7 mg/dL (0.2-1.2); CALCIUM 8.6 mg/dL (8.4-10.2); CREATININE, SERUM 0.67 mg/dL (0.57-1.11); POTASSIUM 3.7 mmol/L (3.5-5.1); TOTAL PROTEIN 5.9 g/dL (6.5-8.1)
[2024-02-22] MEDS: BUPROPION HCL 100 MG TAB PO SCH (08:14)
[2024-02-22] MEDS: LEVOTHYROXINE SODIUM 50 MCG TAB PO SCH (08:14)
[2024-02-22] MEDS: CLOPIDOGREL BISULFATE 75 MG TAB PO SCH (08:14)
[2024-02-22] MEDS: CLONAZEPAM 1 MG TAB PO SCH (08:14)
[2024-02-22] MEDS: LOSARTAN POTASSIUM 25 MG TAB PO SCH (08:15)
[2024-02-22] MEDS: AMLODIPINE BESYLATE 5 MG TAB PO SCH (08:16)
[2024-02-22] MEDS ORDERED: SIMVASTATIN 40 MG TAB PO SCH (09:00)
[2024-02-22] MEDS: LINACLOTIDE 145 MCG CAPSULE PO SCH (09:00)
[2024-02-22] MEDS: CRESTOR 10MG PO SCH (12:53)
[2024-02-22] MEDS: OXCARBAZEPINE 300 MG TAB PO SCH (21:44)
[2024-02-23] VITALS (9 sets, daily range): BP systolic 121–173; BP diastolic 54–70; PULSE 62–88; RESP 17–18; TEMP 97.6–98.2; O2SAT 99–100
[2024-02-23 08:06] LABS: ALBUMIN 3.1 g/dL (3.5-5.0); ALBUMIN/GLOBULIN RATIO 1.3 (0.8-2.0); ANION GAP 11.4 mmol/L (8-16); BILIRUBIN,TOTAL 0.5 mg/dL (0.2-1.2); CALCIUM 8.5 mg/dL (8.4-10.2); CREATININE, SERUM 0.62 mg/dL (0.57-1.11); MAGNESIUM 1.9 MG/DL (1.3-2.1); TOTAL PROTEIN 5.5 g/dL (6.5-8.1)
[2024-02-23 08:07] LABS: POTASSIUM 3.4 mmol/L (3.5-5.1)
[2024-02-23] MEDS: PANTOPRAZOLE SOD 40 MG TABEC PO SCH (09:29)
[2024-02-23] MEDS: ACETAMINOPHEN 325 MG TAB PO PRN (14:24)
[2024-02-23] MEDS: TIZANIDINE HCL 4 MG TAB PO PRN (14:26)
[2024-02-23] MEDS: KETOROLAC TROMETHAMINE 30 MG/ML VIAL IV ONE (16:56)
[2024-02-24 07:00] LABS: BASOPHILS # (AUTO) 0.1 (0.0-0.1); BASOPHILS % 0.8 % (0.0-1.0); EOSINOPHILS # (AUTO) 0.1 (0.0-0.4); EOSINOPHILS % 1.7 % (0.0-6.0); HEMATOCRIT 37.1 % (34.2-44.1); LYMPHOCYTES # (AUTO) 2.3 (1.0-3.2); LYMPHOCYTES % 36.2 % (18.0-39.1); MEAN CORPUSCULAR HEMOGLOBIN 28.9 pg (28-32); MEAN CORPUSCULAR HGB CONC 32.3 g/dL (31-35); MEAN CORPUSCULAR VOLUME 89.4 fL (81-99); MONOCYTES # (AUTO) 0.4 (0.2-0.8); MONOCYTES % 6.5 % (4.4-11.3); NEUTROPHILS # (AUTO) 3.5 (2.1-6.9); NEUTROPHILS % 54.5 % (38.7-80.0); PLATELET COUNT 122 x10e3/uL (140-360); RED BLOOD COUNT 4.15 x10e6/uL (3.6-5.1); RED CELL DISTRIBUTION WIDTH 14.7 % (11.7-14.4); WHITE BLOOD COUNT 6.33 x10e3/uL (4.8-10.8)
[2024-02-24 07:21] LABS: ALBUMIN 3.2 g/dL (3.5-5.0); ALBUMIN/GLOBULIN RATIO 1.2 (0.8-2.0); ANION GAP 12.8 mmol/L (8-16); BILIRUBIN,TOTAL 0.3 mg/dL (0.2-1.2); CALCIUM 8.4 mg/dL (8.4-10.2); CREATININE, SERUM 0.65 mg/dL (0.57-1.11); MAGNESIUM 1.7 MG/DL (1.3-2.1); POTASSIUM 3.8 mmol/L (3.5-5.1); TOTAL PROTEIN 5.8 g/dL (6.5-8.1)
[2024-02-24] MEDS: LEVOTHYROXINE SODIUM 50 MCG TAB PO SCH (07:50)
[2024-02-24 08:01] VITALS: BP 169/65; PULSE 62; RESP 17; TEMP 97.9; O2SAT 100
[2024-02-24 08:20] LABS: PLATELET ESTIMATE SLIGHTLY DECREASED; PLATELET MORPHOLOGY COMMENT NORMAL; RBC MORPHOLOGY COMMENT NORMAL; ROULEAU FEW
[2024-02-24 12:05] VITALS: BP 155/73; PULSE 65; RESP 18; TEMP 97.7; O2SAT 100
[2024-02-24 13:00] VITALS: BP 181/62; PULSE 62; RESP 17; TEMP 97.9; O2SAT 100
[2024-02-24] MEDS: ONDANSETRON HCL INJ 2MG/ML 2ML 2 MG/ML VIAL IV PRN (15:45)
[2024-02-24 16:11] VITALS: BP 170/61; PULSE 65; RESP 18; TEMP 97.6; O2SAT 100
[2024-02-24] MEDS: SCOPOLAMINE 1 MG PATCH TOP SCH (17:58)
[2024-02-24] MEDS: KETOROLAC TROMETHAMINE 30 MG/ML VIAL IV PRN (17:59)
[2024-02-24 19:52] VITALS: BP 171/71; PULSE 66; RESP 17; TEMP 98.2; O2SAT 100
[2024-02-24 19:55] VITALS: BP 171/71; PULSE 66; RESP 19; TEMP 98.2; O2SAT 100
[2024-02-24] MEDS: CLONAZEPAM 1 MG TAB PO PRN (20:27)
[2024-02-24] MEDS: HYDRALAZINE HCL 20 MG/ML VIAL IV ONE (20:28)
[2024-02-24] MEDS: SODIUM CHLORIDE 1 GM TAB PO SCH (20:28)
[2024-02-25] VITALS (7 sets, daily range): BP systolic 131–167; BP diastolic 49–103; PULSE 56–82; RESP 16–20; TEMP 97.4–98.8; O2SAT 98–100
[2024-02-25 05:09] LABS: BASOPHILS # (AUTO) 0.1 (0.0-0.1); BASOPHILS % 0.6 % (0.0-1.0); EOSINOPHILS # (AUTO) 0.1 (0.0-0.4); EOSINOPHILS % 1.4 % (0.0-6.0); HEMOGLOBIN 11.9 g/dL (12.0-16.0); LYMPHOCYTES # (AUTO) 2.7 (1.0-3.2); LYMPHOCYTES % 31.5 % (18.0-39.1); MEAN CORPUSCULAR HEMOGLOBIN 29.1 pg (28-32); MEAN CORPUSCULAR HGB CONC 33.1 g/dL (31-35); MONOCYTES # (AUTO) 0.6 (0.2-0.8); MONOCYTES % 6.6 % (4.4-11.3); NEUTROPHILS # (AUTO) 5.1 (2.1-6.9); NEUTROPHILS % 59.5 % (38.7-80.0); PLATELET COUNT 222 x10e3/uL (140-360); RED BLOOD COUNT 4.09 x10e6/uL (3.6-5.1); RED CELL DISTRIBUTION WIDTH 14.7 % (11.7-14.4)
[2024-02-25 05:29] LABS: ALBUMIN 3.2 g/dL (3.5-5.0); ANION GAP 13.9 mmol/L (8-16); BILIRUBIN,TOTAL 0.4 mg/dL (0.2-1.2); CALCIUM 8.9 mg/dL (8.4-10.2); CREATININE, SERUM 0.63 mg/dL (0.57-1.11); MAGNESIUM 1.8 MG/DL (1.3-2.1); POTASSIUM 3.9 mmol/L (3.5-5.1); TOTAL PROTEIN 6.3 g/dL (6.5-8.1)
[2024-02-25] MEDS: MAGNESIUM/ALUMINUM/SIMETHICONE 30 ML UDC PO ONE (10:54)
[2024-02-25] MEDS ORDERED: AMMONIUM LACTATE 12% LOTION 225GM BTL TOP SCH (13:00)
[2024-02-25] MEDS: PEG (High)/E-LYTE SOLN 4,000 ML BTL PO ONE (14:54)
[2024-02-25 14:55] LABS: ANION GAP 12.2 mmol/L (8-16); CALCIUM 8.5 mg/dL (8.4-10.2); CREATININE, SERUM 0.75 mg/dL (0.57-1.11); POTASSIUM 4.2 mmol/L (3.5-5.1)
[2024-02-25] MEDS: POLYETHYLENE GLYCOL 3350 17 GM PACK PO SCH (16:39)
[2024-02-25] MEDS: PANTOPRAZOLE SOD 40 MG TABEC PO SCH (16:39)
[2024-02-25] MEDS: SUCRALFATE 1 GM/10 ML SUSP NG SCH (16:40)
[2024-02-25] MEDS: MINERAL OIL 30 ML CUP PO SCH (17:04)
[2024-02-26] VITALS (7 sets, daily range): BP systolic 147–168; BP diastolic 55–66; PULSE 58–70; RESP 17–20; TEMP 97.4–98.4; O2SAT 96–100
[2024-02-26] MEDS: MINERAL OIL 132 ML BTL PR ONE (05:31)
[2024-02-26] MEDS: METOCLOPRAMIDE HCL 10 MG/2ML VIAL IV SCH (06:00)
[2024-02-26] MEDS: SCOPOLAMINE 1 MG PATCH TOP SCH (18:36)
[2024-02-27] VITALS (7 sets, daily range): BP systolic 143–168; BP diastolic 51–71; PULSE 63–70; RESP 16–19; TEMP 97–98.1; O2SAT 94–99
[2024-02-27 05:49] LABS: BASOPHILS # (AUTO) 0.1 (0.0-0.1); BASOPHILS % 0.7 % (0.0-1.0); EOSINOPHILS # (AUTO) 0.1 (0.0-0.4); EOSINOPHILS % 1.6 % (0.0-6.0); HEMATOCRIT 35.7 % (34.2-44.1); HEMOGLOBIN 11.8 g/dL (12.0-16.0); LYMPHOCYTES # (AUTO) 2.2 (1.0-3.2); LYMPHOCYTES % 32.3 % (18.0-39.1); MEAN CORPUSCULAR HEMOGLOBIN 28.8 pg (28-32); MEAN CORPUSCULAR HGB CONC 33.1 g/dL (31-35); MEAN CORPUSCULAR VOLUME 87.1 fL (81-99); MONOCYTES # (AUTO) 0.6 (0.2-0.8); MONOCYTES % 8.5 % (4.4-11.3); NEUTROPHILS # (AUTO) 3.8 (2.1-6.9); NEUTROPHILS % 56.8 % (38.7-80.0); PLATELET COUNT 196 x10e3/uL (140-360); RED CELL DISTRIBUTION WIDTH 14.7 % (11.7-14.4); WHITE BLOOD COUNT 6.72 x10e3/uL (4.8-10.8)
[2024-02-27 06:30] LABS: ALBUMIN 3.3 g/dL (3.5-5.0); ANION GAP 13.9 mmol/L (8-16); BILIRUBIN,TOTAL 0.6 mg/dL (0.2-1.2); CREATININE, SERUM 0.72 mg/dL (0.57-1.11); MAGNESIUM 1.9 MG/DL (1.3-2.1); POTASSIUM 3.9 mmol/L (3.5-5.1); TOTAL PROTEIN 6.5 g/dL (6.5-8.1)
[2024-02-27] MEDS: MELATONIN 5 MG TABLET PO PRN (22:00)
[2024-02-28] VITALS: BP 139/65; PULSE 64; RESP 16; TEMP 97.7; O2SAT 100
[2024-02-28 04:54] VITALS: BP 150/74; PULSE 55; RESP 19; TEMP 97.2; O2SAT 99
[2024-02-28 07:57] LABS: BASOPHILS % 0.7 % (0.0-1.0); EOSINOPHILS # (AUTO) 0.1 (0.0-0.4); EOSINOPHILS % 1.5 % (0.0-6.0); HEMATOCRIT 35.3 % (34.2-44.1); HEMOGLOBIN 11.6 g/dL (12.0-16.0); LYMPHOCYTES # (AUTO) 2.2 (1.0-3.2); LYMPHOCYTES % 36.5 % (18.0-39.1); MEAN CORPUSCULAR HEMOGLOBIN 28.7 pg (28-32); MEAN CORPUSCULAR HGB CONC 32.9 g/dL (31-35); MEAN CORPUSCULAR VOLUME 87.4 fL (81-99); MONOCYTES # (AUTO) 0.5 (0.2-0.8); MONOCYTES % 8.8 % (4.4-11.3); NEUTROPHILS # (AUTO) 3.1 (2.1-6.9); NEUTROPHILS % 52.2 % (38.7-80.0); PLATELET COUNT 211 x10e3/uL (140-360); RED BLOOD COUNT 4.04 x10e6/uL (3.6-5.1); RED CELL DISTRIBUTION WIDTH 14.8 % (11.7-14.4); WHITE BLOOD COUNT 5.94 x10e3/uL (4.8-10.8)
[2024-02-28 08:21] VITALS: BP 142/57; PULSE 57; RESP 18; TEMP 98.4; O2SAT 97
[2024-02-28 08:27] LABS: ALBUMIN 3.3 g/dL (3.5-5.0); ALBUMIN/GLOBULIN RATIO 1.1 (0.8-2.0); ANION GAP 11.7 mmol/L (8-16); BILIRUBIN,TOTAL 0.5 mg/dL (0.2-1.2); CREATININE, SERUM 0.68 mg/dL (0.57-1.11); POTASSIUM 3.7 mmol/L (3.5-5.1); TOTAL PROTEIN 6.4 g/dL (6.5-8.1)
[2024-02-28 09:07] VITALS: BP 142/57; PULSE 57; RESP 18; TEMP 98.4; O2SAT 97
[2024-02-28 12:00] VITALS: BP 131/58; PULSE 76; RESP 21; TEMP 98.1; O2SAT 97
== END 2024-02-28 13:50 | disposition home or self-care (01) | DRG 683 ==
LOC: ER 17:45 → ERHOLD 18:11 → MED/SURG 21:57
PROVIDERS: ADMIT Internal Medicine; ATTEND Internal Medicine
DX: N17.9 Acute kidney failure, unspecified (principal); E87.1 Hypo-osmolality and hyponatremia; E86.0 Dehydration; R11.2 Nausea with vomiting, unspecified; D64.9 Anemia, unspecified; I25.10 Atherosclerotic heart disease of native coronary artery without angina pectoris; E86.1 Hypovolemia; R42 Dizziness and giddiness; F41.9 Anxiety disorder, unspecified; K59.00 Constipation, unspecified; I10 Essential (primary) hypertension; E78.5 Hyperlipidemia, unspecified; E03.9 Hypothyroidism, unspecified; R55 Syncope and collapse; K29.70 Gastritis, unspecified, without bleeding; F32.A Depression, unspecified; R53.81 Other malaise; Z11.52 Encounter for screening for COVID-19; Z79.02 Long term (current) use of antithrombotics/antiplatelets; Z79.890 Hormone replacement therapy; Z85.3 Personal history of malignant neoplasm of breast; Z95.820 Peripheral vascular angioplasty status with implants and grafts; Z90.11 Acquired absence of right breast and nipple; Z88.5 Allergy status to narcotic agent; Z88.0 Allergy status to penicillin; Z88.8 Allergy status to other drugs, medicaments and biological substances; F17.200 Nicotine dependence, unspecified, uncomplicated
CPT/HCPCS: 36415; 51700; 71045; 74018; 74177; 80048; 80053; 80307; 81001; 82550; 83735; 84484; 85025; 87400; 87420; 93005; 99284; J0360; J1885; J2405; J2765; J7030; Q9967; U0002

== ENCOUNTER 2024-05-02 09:21 | Inpatient (IN) | payer MEDICARE ==
[~2024-05-02] VITALS: Ht 170.2 cm; Wt 68.0 kg
[~2024-05-02 09:21] MED LIST changes: +BUPROPION HCL150 M2 PO; +LINZESS290 MCG PO
[2024-05-02 09:31] VITALS: TEMP 98
[2024-05-02 10:18] LABS: BASOPHILS # (AUTO) 0.1 (0.0-0.1); BASOPHILS % 0.4 % (0.0-1.0); EOSINOPHILS # (AUTO) 0.1 (0.0-0.4); EOSINOPHILS % 0.7 % (0.0-6.0); HEMOGLOBIN 13.7 g/dL (12.0-16.0); LYMPHOCYTES # (AUTO) 2.4 (1.0-3.2); LYMPHOCYTES % 17.5 % (18.0-39.1); MEAN CORPUSCULAR HEMOGLOBIN 29.3 pg (28-32); MEAN CORPUSCULAR HGB CONC 32.6 g/dL (31-35); MEAN CORPUSCULAR VOLUME 89.7 fL (81-99); MONOCYTES % 7.1 % (4.4-11.3); NEUTROPHILS % 73.9 % (38.7-80.0); PLATELET COUNT 266 x10e3/uL (140-360); RED BLOOD COUNT 4.68 x10e6/uL (3.6-5.1); RED CELL DISTRIBUTION WIDTH 14.8 % (11.7-14.4); WHITE BLOOD COUNT 13.49 x10e3/uL (4.8-10.8)
[2024-05-02] MEDS: SODIUM CHLORIDE 0.9% 1000ML 1,000 ML IV ONE (10:32)
[2024-05-02] MEDS: ONDANSETRON HCL INJ 2MG/ML 2ML 2 MG/ML VIAL IV STA (10:32)
[2024-05-02 10:51] LABS: ALBUMIN 3.8 g/dL (3.5-5.0); ALBUMIN/GLOBULIN RATIO 1.2 (0.8-2.0); ANION GAP 15.3 mmol/L (8-16); BILIRUBIN,TOTAL 0.3 mg/dL (0.2-1.2); CALCIUM 9.8 mg/dL (8.4-10.2); CREATININE, SERUM 0.72 mg/dL (0.57-1.11)
[2024-05-02 11:14] LABS: POTASSIUM 3.3 mmol/L (3.5-5.1)
[2024-05-02] MEDS ORDERED: IOPAMIDOL 370 MG/ML 100 ML INFUS..BTL INJ ONE (11:28)
[2024-05-02 13:39] LABS: CLARITY,URINE CLEAR (CLEAR); COLOR,URINE YELLOW (YELLOW); GLUCOSE, URINE NEGATIVE (NEGATIVE); LEUKOCYTE ESTERASE ,URINE NEGATIVE (NEGATIVE); NITRITE,URINE NEGATIVE (NEGATIVE); PH,URINE 6.5 (5 - 7); PROTEIN,URINE DIPSTICK NEGATIVE (NEGATIVE)
[2024-05-02 13:40] LABS: BILIRUBIN,URINE NEGATIVE (NEGATIVE); KETONES,URINE NEGATIVE (NEGATIVE); URINE UROBILINOGEN 0.2 mg/dL (0.2 - 1)
[2024-05-02 13:41] LABS: BACTERIA,URINE FEW /HPF; EPITHELIAL CELLS,URINE MODERATE /LPF; MUCUS,URINE FEW (RARE); RBC,URINE 0-5 /HPF (0-5); WBC,URINE (MAN) 0-5 /HPF (0-5)
[2024-05-02] MEDS: ACETAMINOPHEN 325 MG TAB PO ONE (14:11)
[2024-05-02] MEDS: METOCLOPRAMIDE HCL 10 MG/2ML VIAL IV ONE (14:11)
[2024-05-02 14:30] VITALS: PULSE 71; RESP 13
[2024-05-02 15:45] VITALS: BP 153/66; PULSE 60; RESP 18; TEMP 97.6; O2SAT 100
[2024-05-02] MEDS: SODIUM CHLORIDE 0.9% 1000ML 1,000 ML IV SCH (16:42)
[2024-05-02] MEDS ORDERED: MELATONIN3 MG PO (18:35)
[2024-05-02 20:00] VITALS: BP 168/66; PULSE 58; RESP 17; TEMP 98.3; O2SAT 100
[2024-05-02] MEDS: ONDANSETRON HCL INJ 2MG/ML 2ML 2 MG/ML VIAL IV PRN (20:05)
[2024-05-02 20:27] VITALS: BP 153/66; PULSE 60; RESP 18; TEMP 97.6; O2SAT 100
[2024-05-03] VITALS (7 sets, daily range): BP systolic 167–186; BP diastolic 50–88; PULSE 58–99; RESP 17–20; TEMP 97.8–98.2; O2SAT 98–100
[2024-05-03 06:15] LABS: BASOPHILS % 0.7 % (0.0-1.0); EOSINOPHILS # (AUTO) 0.1 (0.0-0.4); EOSINOPHILS % 1.2 % (0.0-6.0); HEMATOCRIT 35.7 % (34.2-44.1); LYMPHOCYTES # (AUTO) 2.4 (1.0-3.2); LYMPHOCYTES % 40.8 % (18.0-39.1); MEAN CORPUSCULAR HEMOGLOBIN 28.7 pg (28-32); MEAN CORPUSCULAR HGB CONC 33.6 g/dL (31-35); MEAN CORPUSCULAR VOLUME 85.4 fL (81-99); MONOCYTES # (AUTO) 0.5 (0.2-0.8); MONOCYTES % 8.7 % (4.4-11.3); NEUTROPHILS # (AUTO) 2.8 (2.1-6.9); NEUTROPHILS % 48.4 % (38.7-80.0); PLATELET COUNT 201 x10e3/uL (140-360); RED BLOOD COUNT 4.18 x10e6/uL (3.6-5.1); WHITE BLOOD COUNT 5.83 x10e3/uL (4.8-10.8)
[2024-05-03 06:43] LABS: ALANINE AMINOTRANSFERASE 24 IU/L (0-55); ALBUMIN 3.4 g/dL (3.5-5.0); ALBUMIN/GLOBULIN RATIO 1.4 (0.8-2.0); ALKALINE PHOSPHATASE 101 IU/L (40-150); BILIRUBIN,TOTAL 0.3 mg/dL (0.2-1.2); BLOOD UREA NITROGEN < 5 mg/dL (7-26); CARBON DIOXIDE 22 mmol/L (22-29); CHLORIDE 107 mmol/L (98-107); CREATININE, SERUM 0.61 mg/dL (0.57-1.11); EST GLOMERULAR FILTRATION RATE 100 ML/MIN (>=60); GLUCOSE 84 mg/dL (74-118); SODIUM 139 mmol/L (136-145); TOTAL PROTEIN 5.9 g/dL (6.5-8.1)
[2024-05-03 06:47] LABS: BUN/CREATININE RATIO 8 (6-25)
[2024-05-03] MEDS: ACETAMINOPHEN 325 MG TAB PO PRN (06:47)
[2024-05-03] MEDS ORDERED: BUPROPION HCL SR 150 MG TAB PO SCH (11:00)
[2024-05-03] MEDS ORDERED: LINACLOTIDE 290 MCG PO SCH (11:30)
[2024-05-03] MEDS: LOSARTAN POTASSIUM 25 MG TAB PO SCH (11:59)
[2024-05-03] MEDS: MECLIZINE HCL 12.5 MG TAB PO SCH (11:59)
[2024-05-03] MEDS: AMLODIPINE BESYLATE 5 MG TAB PO SCH (12:00)
[2024-05-03] MEDS: HYDRALAZINE HCL 20 MG/ML VIAL IV PRN (18:12)
[2024-05-03] MEDS: ROSUVASTATIN 40 MG PO SCH (20:40)
[2024-05-03] MEDS: CLONAZEPAM 1 MG TAB PO SCH (20:41)
[2024-05-03] MEDS: MELATONIN 3 MG TAB PO SCH (20:42)
[2024-05-03] MEDS: OXCARBAZEPINE 300 MG TAB PO SCH (20:42)
[2024-05-03] MEDS ORDERED: CRESTOR 10MG PO SCH (21:00)
[2024-05-03] MEDS ORDERED: SIMVASTATIN 40 MG TAB PO SCH (21:00)
[2024-05-03] MEDS: BUPROPION HCL SR 150 MG TAB PO SCH (23:00)
[2024-05-04] VITALS (9 sets, daily range): BP systolic 137–169; BP diastolic 60–91; PULSE 66–79; RESP 17–20; TEMP 97.8–98.3; O2SAT 96–100
[2024-05-04] MEDS: LEVOTHYROXINE SODIUM 50 MCG TAB PO SCH (04:38)
[2024-05-04 05:52] LABS: BASOPHILS # (AUTO) 0.1 (0.0-0.1); BASOPHILS % 0.7 % (0.0-1.0); EOSINOPHILS # (AUTO) 0.1 (0.0-0.4); EOSINOPHILS % 1.8 % (0.0-6.0); HEMATOCRIT 40.3 % (34.2-44.1); HEMOGLOBIN 13.1 g/dL (12.0-16.0); LYMPHOCYTES # (AUTO) 2.5 (1.0-3.2); LYMPHOCYTES % 35.1 % (18.0-39.1); MEAN CORPUSCULAR HEMOGLOBIN 29.1 pg (28-32); MEAN CORPUSCULAR HGB CONC 32.5 g/dL (31-35); MEAN CORPUSCULAR VOLUME 89.6 fL (81-99); MONOCYTES # (AUTO) 0.6 (0.2-0.8); MONOCYTES % 7.9 % (4.4-11.3); NEUTROPHILS # (AUTO) 3.9 (2.1-6.9); NEUTROPHILS % 54.4 % (38.7-80.0); PLATELET COUNT 228 x10e3/uL (140-360); RED CELL DISTRIBUTION WIDTH 14.9 % (11.7-14.4); WHITE BLOOD COUNT 7.13 x10e3/uL (4.8-10.8)
[2024-05-04 06:12] LABS: ANION GAP 15.1 mmol/L (8-16); CALCIUM 9.5 mg/dL (8.4-10.2); CREATININE, SERUM 0.63 mg/dL (0.57-1.11)
[2024-05-04 06:16] LABS: POTASSIUM 3.1 mmol/L (3.5-5.1)
[2024-05-04] MEDS: CLOPIDOGREL BISULFATE 75 MG TAB PO SCH (10:00)
[2024-05-04] MEDS: KETOROLAC TROMETHAMINE 30 MG/ML VIAL IV PRN (11:08)
[2024-05-05] VITALS (9 sets, daily range): BP systolic 113–162; BP diastolic 43–64; PULSE 64–92; RESP 17–18; TEMP 98–98.9; O2SAT 99–100
[2024-05-05] MEDS: SCOPOLAMINE 1 MG PATCH TOP SCH (05:30)
[2024-05-06] VITALS (8 sets, daily range): BP systolic 120–154; BP diastolic 50–71; PULSE 56–76; RESP 16–20; TEMP 97.5–98.5; O2SAT 98–99
[2024-05-06] MEDS: MONTELUKAST SODIUM 10 MG TAB PO SCH (09:39)
[2024-05-07 03:01] VITALS: BP 142/55; PULSE 73; RESP 18; TEMP 98.3; O2SAT 99
[2024-05-07 06:03] LABS: BASOPHILS % 0.8 % (0.0-1.0); EOSINOPHILS # (AUTO) 0.1 (0.0-0.4); EOSINOPHILS % 1.9 % (0.0-6.0); HEMATOCRIT 37.2 % (34.2-44.1); HEMOGLOBIN 12.8 g/dL (12.0-16.0); LYMPHOCYTES # (AUTO) 1.3 (1.0-3.2); LYMPHOCYTES % 26.8 % (18.0-39.1); MEAN CORPUSCULAR HEMOGLOBIN 29.3 pg (28-32); MEAN CORPUSCULAR HGB CONC 34.4 g/dL (31-35); MEAN CORPUSCULAR VOLUME 85.1 fL (81-99); MONOCYTES # (AUTO) 0.5 (0.2-0.8); MONOCYTES % 10.4 % (4.4-11.3); NEUTROPHILS # (AUTO) 2.8 (2.1-6.9); NEUTROPHILS % 59.9 % (38.7-80.0); PLATELET COUNT 169 x10e3/uL (140-360); RED BLOOD COUNT 4.37 x10e6/uL (3.6-5.1); RED CELL DISTRIBUTION WIDTH 14.8 % (11.7-14.4); WHITE BLOOD COUNT 4.73 x10e3/uL (4.8-10.8)
[2024-05-07 06:48] LABS: ALBUMIN 3.3 g/dL (3.5-5.0); ALBUMIN/GLOBULIN RATIO 1.2 (0.8-2.0); BILIRUBIN,TOTAL 0.2 mg/dL (0.2-1.2); CALCIUM 8.9 mg/dL (8.4-10.2); CREATININE, SERUM 0.64 mg/dL (0.57-1.11); MAGNESIUM 1.9 MG/DL (1.3-2.1)
[2024-05-07 07:34] VITALS: BP 158/58; PULSE 63; RESP 17; TEMP 97.8; O2SAT 98
[2024-05-07 09:10] VITALS: BP 158/58; PULSE 63; RESP 17; TEMP 97.8; O2SAT 98
[2024-05-07] MEDS: METHYLPREDNISOLONE SOD SUCC 125 MG/2ML VIAL IV SCH (09:50)
[2024-05-07] MEDS ORDERED: PROPOFOL IV EMULSION 10 MG/ML 20 ML VIAL ONE (11:28)
[2024-05-07] MEDS ORDERED: LIDOCAINE HCL 2% LOCAL INJ 5 ML SDV VIAL INJ ONE (11:29)
[2024-05-07] MEDS ORDERED: FENTANYL CITRATE/PF 100MCG/2 ML INJ ONE (11:32)
[2024-05-07] MEDS ORDERED: ONDANSETRON HCL INJ 2MG/ML 2ML 2 MG/ML VIAL ONE (11:33)
[2024-05-07] MEDS ORDERED: PANTOPRAZOLE SOD 40 MG TABEC PO ONE (12:00)
[2024-05-07 12:25] VITALS: BP 148/67; PULSE 66; RESP 18; TEMP 98; O2SAT 97
[2024-05-07 15:00] VITALS: BP 137/66; PULSE 65; RESP 19; TEMP 98.1; O2SAT 95
[2024-05-07 20:00] VITALS: BP 160/71; PULSE 67; RESP 19; TEMP 98; O2SAT 100
[2024-05-08] VITALS (8 sets, daily range): BP systolic 149–190; BP diastolic 62–83; PULSE 61–73; RESP 18–20; TEMP 97.7–97.9; O2SAT 95–100
[2024-05-08] MEDS: GUAIFENESIN/DEXTROMETHORPHAN LIQD 5 ML UDC NG PRN (05:41)
[2024-05-09] VITALS (10 sets, daily range): BP systolic 125–161; BP diastolic 59–82; PULSE 63–99; RESP 17–20; TEMP 97.9–98.9; O2SAT 98–100
[2024-05-09] MEDS: KETOROLAC TROMETHAMINE 30 MG/ML VIAL IV PRN (16:38)
[2024-05-10] VITALS (11 sets, daily range): BP systolic 128–171; BP diastolic 50–70; PULSE 62–85; RESP 17–22; TEMP 97.7–98.3; O2SAT 95–99
[2024-05-10] MEDS: GUAIFENESIN 600 MG TAB PO PRN (10:02)
[2024-05-10] MEDS: ALBUTEROL/IPRATROPIUM 3 ML NEB NEB SCH (10:24)
[2024-05-10] MEDS: TIZANIDINE HCL 4 MG TAB PO PRN (16:28)
[2024-05-10] MEDS: BISACODYL 5 MG TAB EC PO SCH (20:19)
[2024-05-11 00:46] VITALS: BP 158/61; PULSE 72; RESP 16; TEMP 98; O2SAT 95
[2024-05-11 02:39] VITALS: PULSE 67; RESP 19; O2SAT 93
[2024-05-11 04:27] VITALS: BP 136/50; PULSE 62; RESP 16; TEMP 97.7
[2024-05-11 06:38] VITALS: PULSE 60; RESP 22; O2SAT 95
[2024-05-11 07:30] VITALS: BP 136/50; PULSE 74; RESP 20; TEMP 97.7; O2SAT 96
[2024-05-11 08:36] VITALS: BP 166/52; PULSE 76; RESP 18; TEMP 97.3; O2SAT 98
== END 2024-05-11 11:25 | disposition home or self-care (01) | DRG 384 ==
LOC: ER 09:28 → ERHOLD 14:22 → MED/SURG3 15:44 → OBSVTOIN 05-05 08:29
PROVIDERS: ADMIT Internal Medicine; ATTEND Internal Medicine
PROC: 0DB38ZX Excision of Lower Esophagus, Via Natural or Artificial Opening Endoscopic, Diagnostic (ICD-10-PCS; 2024-05-07)
PROC: 0DB78ZX Excision of Stomach, Pylorus, Via Natural or Artificial Opening Endoscopic, Diagnostic (ICD-10-PCS; principal; 2024-05-07 11:31)
DX: K25.9 Gastric ulcer, unspecified as acute or chronic, without hemorrhage or perforation (principal); J44.1 Chronic obstructive pulmonary disease with (acute) exacerbation; R42 Dizziness and giddiness; I10 Essential (primary) hypertension; E86.0 Dehydration; E78.5 Hyperlipidemia, unspecified; E03.9 Hypothyroidism, unspecified; I25.10 Atherosclerotic heart disease of native coronary artery without angina pectoris; R11.15 Cyclical vomiting syndrome unrelated to migraine; K21.9 Gastro-esophageal reflux disease without esophagitis; K44.9 Diaphragmatic hernia without obstruction or gangrene; F41.9 Anxiety disorder, unspecified; F32.A Depression, unspecified; Z79.02 Long term (current) use of antithrombotics/antiplatelets; Z79.890 Hormone replacement therapy; Z85.3 Personal history of malignant neoplasm of breast; Z90.11 Acquired absence of right breast and nipple; Z95.5 Presence of coronary angioplasty implant and graft; Z90.49 Acquired absence of other specified parts of digestive tract; Z88.1 Allergy status to other antibiotic agents; Z88.5 Allergy status to narcotic agent; Z88.8 Allergy status to other drugs, medicaments and biological substances
CPT/HCPCS: 36415; 43239; 70450; 74018; 74177; 78264; 80048; 80053; 81001; 82948; 83690; 83735; 85025; 88305; 88342; 94640; 94799; 99252; 99284; A9541; G0378; J0360; J0696; J1885; J2003; J2405; J2470; J2765; J2919; J7030; Q9967